=== PATIENT | female | born 1990 | race Caucasian/White ===

== ENCOUNTER 2016-09-10 19:47 | Emergency (ER) | payer BC ==
--- NOTE | 2016-09-10 19:58 | EDM.PDOC ---
ED HPI GENERAL MEDICAL PROBLEM - General Stated Complaint: EAR PAIN Time Seen by Provider: 09/10/16 19:55 Source of Information: Reports: Patient History Limitations: Reports: No Limitations - History of Present Illness INITIAL COMMENTS - FREE TEXT/NARRATIVE: HISTORY AND PHYSICAL: History of present illness: [26-year-old female breast-feeding after recently having a baby. Now complains of cold symptoms and viral syndrome. She has mild sore throat some pressure in her ear is congested fatigued. Denies cough or shortness of breath. No abdominal pain. No nausea or vomiting. Normal bowel bladder habits.] Review of systems: As per history of present illness and below otherwise all systems reviewed and negative. Past medical history: As per history of present illness and as reviewed below otherwise noncontributory. Surgical history: As per history of present illness and as reviewed below otherwise noncontributory. Social history: No reported history of drug or alcohol abuse. Family history: As per history of present illness and as reviewed below otherwise noncontributory. Physical exam: Well-appearing patient smiling supple neck benign exam, left TM erythema bulging and loss of landmarks right TM normal. Supple neck. HEENT: Atraumatic, normocephalic, pupils reactive, negative for conjunctival pallor or scleral icterus, mucous membranes moist, throat clear, neck supple, nontender, trachea midline. Lungs: Clear to auscultation, breath sounds equal bilaterally, chest nontender. Heart: S1S2, regular, negative for clicks, rubs, or JVD. Abdomen: Soft, nondistended, nontender. Negative for masses or hepatosplenomegaly. Negative for costovertebral tenderness. Pelvis: Stable nontender. Genitourinary: Deferred. Rectal: Deferred. Extremities: Atraumatic, negative for cords or calf pain. Neurovascular unremarkable. Neuro: Awake, alert, oriented. Cranial nerves grossly unremarkable. Cerebellum unremarkable. Motor and sensory unremarkable throughout. Exam nonfocal. Diagnostics: [] Therapeutics: [Tylenol] Impression: Otitis media Acute otalgia Clinical fever] Plan: [Signs and symptoms consistent with otitis media in a well-appearing patient with unremarkable vital signs. We'll prescribe Zithromax. Patient aware of possibility of viral etiology along however she is cover for possibility of bacterial infection She can take ibuprofen and Tylenol as needed rest and drink plenty of fluids. No further workup or treatment indicated. Patient agrees with outpatient follow-up and strict return precautions given.] Definitive disposition and diagnosis as appropriate pending reevaluation and review of above. 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: Other OB/BYN History: 29 weeks 01/25/2015 Psychiatric History: Reports: Anxiety Hematologic History: Reports: None Immunologic History: Reports: None Oncologic (Cancer) History: Reports: None - Infectious Disease History Infectious Disease History: Reports: Hepatitis C - Past Surgical History GI Surgical History: Reports: Cholecystectomy Female Surgical History: Reports: D&C Social & Family History - Family History Family Medical History: Noncontributory - Tobacco Use Smoking Status *Q: Never Smoker Years of Tobacco use: 1 Packs/Tins Daily: 1 Second Hand Smoke Exposure: No - Caffeine Use Caffeine Use: Reports: Coffee - Alcohol Use Days Per Week of Alcohol Use: 0 - Recreational Drug Use Recreational Drug Use: No ED ROS GENERAL - Review of Systems Review Of Systems: See Below (History of present illness) ED EXAM, GENERAL - Physical Exam Exam: See Below (History of present illness) Course - Vital Signs Last Recorded V/S: Last Vital Signs Temp 36.9 C 09/10/16 20:04 Pulse 89 09/10/16 20:04 Resp 17 09/10/16 20:04 BP 111/59 L 09/10/16 20:04 Pulse Ox 98 09/10/16 20:04 Departure - Departure Time of Disposition: 19:57 Disposition: Home, Self-Care 01 Condition: Good Clinical Impression: Otitis media, Fever - Discharge Information Referrals: Willy Morales MD [Primary Care Provider] - Additional Instructions: It appears that you have otitis media. Is possible that this could be caused by a virus but sometimes it's a result of a bacterial infection so we are treating with Zithromax. You've been given the first dose which is good for 24 hours. Fill your prescription tomorrow and start the dosing as prescribed. Take ibuprofen every 6 hours and Tylenol every 4 hours as needed for aches pains and fever. Rest and drink plenty of fluids and follow-up with your Dr. tomorrow Follow-up with your Dr.Return immediately for new severe or worsening symptoms.
[2016-09-10] MEDS ORDERED: Azithromycin 250 MG Tab PO ONE (20:17)
[2016-09-10 20:57] VITALS: BP 102/56
== END 2016-09-10 20:38 | disposition home or self-care (01) ==
LOC: MW.ED 19:47
DX: H66.92 Otitis media, unspecified, left ear (principal); Z88.1 Allergy status to other antibiotic agents; Z90.49 Acquired absence of other specified parts of digestive tract
CPT/HCPCS: 99282; A9270

== ENCOUNTER 2016-09-22 05:19 | Emergency (ER) | payer BC ==
--- NOTE | 2016-09-22 05:27 | EDM.PDOC ---
ED HPI GENERAL MEDICAL PROBLEM - General Chief Complaint: Upper Extremity Injury/Pain Stated Complaint: RING STUCK ON LEFT HAND Time Seen by Provider: 09/22/16 05:26 Source of Information: Reports: Patient - History of Present Illness INITIAL COMMENTS - FREE TEXT/NARRATIVE: HISTORY AND PHYSICAL: History of present illness: Ring stuck on left fourth digit, normal capillary refill mild swelling, finger remains tender after the ring is removed, mildly redness may be from the tightfitting ring her there may be associated cellulitis from unable to discern which is certainly comes into play that the ring was tight however she was in June and she has not had a problem getting the ring off or on over the last 4 months tonight she had digit swelling to the point that the ring was painful to wear. Patient denies injury or trauma No fever nausea vomiting chills sweats over patient is panicky as she cannot give during for her finger Review of systems: As per history of present illness and below otherwise all systems reviewed and negative. Past medical history: As per history of present illness and as reviewed below otherwise noncontributory. Surgical history: As per history of present illness and as reviewed below otherwise noncontributory. Social history: No reported history of drug or alcohol abuse. Family history: As per history of present illness and as reviewed below otherwise noncontributory. Physical exam: HEENT: Atraumatic, normocephalic, pupils reactive, negative for conjunctival pallor or scleral icterus, mucous membranes moist, throat clear, neck supple, nontender, trachea midline. Lungs: Clear to auscultation, breath sounds equal bilaterally, chest nontender. Heart: S1S2, regular, negative for clicks, rubs, or JVD. Abdomen: Soft, nondistended, nontender. Negative for masses or hepatosplenomegaly. Negative for costovertebral tenderness. Pelvis: Stable nontender. Genitourinary: Deferred. Rectal: Deferred. Extremities: Atraumatic, negative for cords or calf pain. Neurovascular unremarkable. Neuro: Awake, alert, oriented. Cranial nerves II through XII unremarkable. Cerebellum unremarkable. Motor and sensory unremarkable throughout. Exam nonfocal. Diagnostics: [] Therapeutics: []Ring cutter, ring removed Bactrim double strength by mouth twice a day #20 no refill Follow-up with primary care in one to 2 weeks return if symptoms persist or worsen Impression: []Ring stuck on finger, removed without complication Definitive disposition and diagnosis as appropriate pending reevaluation and review of above. 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: Other OB/BYN History: 29 weeks 01/25/2015 Psychiatric History: Reports: Anxiety Hematologic History: Reports: None Immunologic History: Reports: None Oncologic (Cancer) History: Reports: None - Infectious Disease History Infectious Disease History: Reports: Hepatitis C - Past Surgical History GI Surgical History: Reports: Cholecystectomy Female Surgical History: Reports: D&C Social & Family History - Family History Family Medical History: Noncontributory - Tobacco Use Smoking Status *Q: Never Smoker Years of Tobacco use: 1 Packs/Tins Daily: 1 Second Hand Smoke Exposure: No - Caffeine Use Caffeine Use: Reports: Coffee Caffeine Use Comment: 1cup/day - Alcohol Use Days Per Week of Alcohol Use: 0 - Recreational Drug Use Recreational Drug Use: No Review of Systems - Review of Systems Review Of Systems: ROS reveals no pertinent complaints other than HPI. ED EXAM, GENERAL - Physical Exam Exam: See Below Course - Vital Signs Last Recorded V/S: Last Vital Signs Temp 36.1 C 09/22/16 05:25 Pulse 82 09/22/16 05:25 Resp 18 09/22/16 05:25 BP 93/55 L 09/22/16 05:25 Pulse Ox 98 09/22/16 05:25 Departure - Departure Time of Disposition: 05:41 Disposition: Home, Self-Care 01 Condition: Good Clinical Impression: Cellulitis and abscess of finger, unspecified - Discharge Information Forms: ED Department Discharge Additional Instructions: Return if symptoms persist or worsen or fever nausea vomiting chills sweats despite antibiotic Follow-up with primary care in 2 weeks sooner as needed Medication as prescribed [facility] [address] [place] [id number] The following information is given to patients seen in the emergency department who are being discharged to home. This information is to outline your options for follow-up care. We provide all patients seen in our emergency department with a follow-up referral. The need for follow-up, as well as the timing and circumstances, are variable depending upon the specifics of your emergency department visit. If you don't have a primary care physician on staff, we will provide you with a referral. We always advise you to contact your personal physician following an emergency department visit to inform them of the circumstance of the visit and for follow-up with them and/or the need for any referrals to a consulting specialist. The emergency department will also refer you to a specialist when appropriate. This referral assures that you have the opportunity for follow-up care with a specialist. All of these measure are taken in an effort to provide you with optimal care, which includes your follow-up. Under all circumstances we always encourage you to contact your private physician who remains a resource for coordinating your care. When calling for follow-up care, please make the office aware that this follow-up is from your recent emergency room visit. If for any reason you are refused follow-up, please contact the [facility] emergency department at and asked to speak to the emergency department charge nurse.
[2016-09-22 05:54] VITALS: BP 97/61
== END 2016-09-22 05:54 | disposition home or self-care (01) ==
LOC: MW.ED 05:19
DX: L03.012 Cellulitis of left finger (principal); F41.9 Anxiety disorder, unspecified; Z90.49 Acquired absence of other specified parts of digestive tract; Z88.1 Allergy status to other antibiotic agents; X58.XXXA Exposure to other specified factors, initial encounter
CPT/HCPCS: 99282; 99283

== ENCOUNTER 2017-02-03 10:16 | Emergency (ER) | payer BC ==
[2017-02-03] MEDS ORDERED: Sodium Chloride 0.9% 2.5 ML Syringe FLUSH PRN (10:26)
[2017-02-03] MEDS ORDERED: LORazepam 2 MG/ML MDV IVPUSH ONE (10:26)
[2017-02-03] MEDS ORDERED: Sodium Chloride 0.9% 1,000 ML IV ONE (10:45)
--- NOTE | 2017-02-03 10:46 | EDM.PDOC ---
ED HPI GENERAL MEDICAL PROBLEM - General Chief Complaint: General Stated Complaint: pain in legs Time Seen by Provider: 02/03/17 10:30 Source of Information: Reports: Patient History Limitations: Reports: No Limitations - History of Present Illness INITIAL COMMENTS - FREE TEXT/NARRATIVE: History of present illness: [26-year-old female presenting with complaints of anxiety, nausea vomiting, and peripheral neuropathy. Patient indicates that she feels numbness and tingling to her legs and it is painful. Patient occasionally bothers him to evaluate this but that she missed her appointment and she was scheduled for the second but she cannot tolerate the pain at this time so she is coming in seeking care.] Review of systems: As per history of present illness and below otherwise all systems reviewed and negative. Past medical history: As per history of present illness and as reviewed below otherwise noncontributory. Surgical history: As per history of present illness and as reviewed below otherwise noncontributory. Social history: No reported history of drug or alcohol abuse. Family history: As per history of present illness and as reviewed below otherwise noncontributory. Physical exam: HEENT: Atraumatic, normocephalic, pupils reactive, negative for conjunctival pallor or scleral icterus, mucous membranes moist, throat clear, neck supple, nontender, trachea midline. Lungs: Clear to auscultation, breath sounds equal bilaterally, chest nontender. Heart: S1S2, regular, negative for clicks, rubs, or JVD. Abdomen: Soft, nondistended, nontender. Negative for masses or hepatosplenomegaly. Negative for costovertebral tenderness. Pelvis: Stable nontender. Genitourinary: Deferred. Rectal: Deferred. Extremities: Atraumatic, negative for cords or calf pain. Neurovascular unremarkable. Neuro: Awake, alert, oriented. Cranial nerves II through XII unremarkable. Cerebellum unremarkable. Motor and sensory unremarkable throughout. Exam nonfocal. Patient with an extensive psychiatric history as well as drug abuse indicates that she received treatment for hepatitis C is clean dry and sober and that she had taken herself off most of her meds. Diagnostics: [CBC, CMP, influenza AB] Therapeutics: [IV fluid, Zofran 4 mg, Ativan 2 mg] Impression: [#1 complaints of neuropathic pain] Plan: [Gabapentin bridge until follow-up with primary care] Definitive disposition and diagnosis as appropriate pending reevaluation and review of above. bilateral legs Pain Score (Numeric/FACES): 10 - Related Data Allergies Allergy/AdvReac Type Severity Reaction Status Date / Time clindamycin Allergy Rash Verified 02/03/17 10:23 Home Meds: Home Meds Azithromycin [Zithromax] 250 mg PO DAILY #6 tablet 09/10/16 [Rx] Gabapentin [Neurontin] 600 mg PO TID #60 tablet 02/03/17 [Rx] Past Medical History - Past Health History Medical/Surgical History: Denies Medical/Surgical History HEENT History: Reports: None Cardiovascular History: Reports: None Respiratory History: Reports: None Gastrointestinal History: Reports: None Genitourinary History: Reports: None 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: Other OB/BYN History: 29 weeks 01/25/2015 Musculoskeletal History: Reports: None Neurological History: Reports: None Psychiatric History: Reports: Anxiety, Depression Endocrine/Metabolic History: Reports: None Hematologic History: Reports: None Immunologic History: Reports: None Oncologic (Cancer) History: Reports: None Dermatologic History: Reports: None - Infectious Disease History Infectious Disease History: Reports: Hepatitis C - Past Surgical History Head Surgeries/Procedures: Reports: None GI Surgical History: Reports: Cholecystectomy Female Surgical History: Reports: D&C Musculoskeletal Surgical History: Reports: None Social & Family History - Family History Family Medical History: Noncontributory - Tobacco Use Smoking Status *Q: Never Smoker Years of Tobacco use: 1 Packs/Tins Daily: 1 Second Hand Smoke Exposure: No - Caffeine Use Caffeine Use: Reports: Coffee Caffeine Use Comment: 1cup/day - Alcohol Use Days Per Week of Alcohol Use: 0 - Recreational Drug Use Recreational Drug Use: No ED ROS GENERAL - Review of Systems Review Of Systems: See Below (See history of present illness) ED EXAM, GENERAL - Physical Exam Exam: See Below (The history of present illness) Course - Vital Signs Last Recorded V/S: Last Vital Signs Temp 37.7 C 02/03/17 10:23 Pulse 86 02/03/17 12:04 Resp 16 02/03/17 12:04 BP 88/58 L 02/03/17 12:04 Pulse Ox 98 02/03/17 12:04 - Orders/Labs/Meds Orders: Active Orders 24 hr Category Date Time Status Sodium Chloride 0.9% [Saline Flush] Med 02/03/17 10:26 Active 2.5 ml FLUSH ASDIRECTED PRN Saline Lock Insert [OM.PC] Stat Oth 02/03/17 10:26 Ordered Medication Orders Sodium Chloride (Saline Flush) 2.5 ml FLUSH ASDIRECTED PRN PRN Reason: Keep Vein Open Last Admin: 02/03/17 10:51 Dose: 2.5 ml Labs: Laboratory Tests 02/03/17 02/03/17 Range/Units 10:35 10:35 WBC 9.97 (4.0-11.0) K/uL RBC 5.12 (4.30-5.90) M/uL Hgb 15.6 (12.0-16.0) g/dL Hct 44.1 (36.0-46.0) % MCV 86.1 (80.0-98.0) fL MCH 30.5 (27.0-32.0) pg MCHC 35.4 (31.0-37.0) g/dL RDW Std Deviation 38.4 (28.0-62.0) fl RDW Coeff of Alana 12 (11.0-15.0) % Plt Count 238 (150-400) K/uL MPV 11.20 (7.40-12.00) fL Neut % (Auto) 83.5 H (48.0-80.0) % Lymph % (Auto) 9.7 L (16.0-40.0) % Loup % (Auto) 6.7 (0.0-15.0) % Eos % (Auto) 0.0 (0.0-7.0) % Baso % (Auto) 0.1 (0.0-1.5) % Neut # (Auto) 8.3 H (1.4-5.7) K/uL Lymph # (Auto) 1.0 (0.6-2.4) K/uL Loup # (Auto) 0.7 (0.0-0.8) K/uL Eos # (Auto) 0.0 (0.0-0.7) K/uL Baso # (Auto) 0.0 (0.0-0.1) K/uL Nucleated RBC % 0.0 /100WBC Nucleated RBCs # 0 K/uL Sodium 141 (136-146) mmol/L Potassium 3.4 L (3.5-5.1) mmol/L Chloride 106 (98-110) mmol/L Carbon Dioxide 21 (21-31) mmol/L BUN 14 (6.0-23.0) mg/dL Creatinine 0.8 (0.6-1.5) mg/dL Est Cr Clr Drug Dosing 87.38 mL/min Estimated GFR (MDRD) > 60.0 ml/min Glucose 133 H (60-110) mg/dL Calcium 9.6 (8.8-10.8) mg/dL Total Bilirubin 0.7 (0.1-1.5) mg/dL AST 15 (5-40) IU/L ALT 17 (8-54) IU/L Alkaline Phosphatase 63 (40-150) Total Protein 7.5 (6.0-8.0) g/dL Albumin 4.6 (3.5-5.0) g/dL Globulin 2.9 (2.0-3.5) g/dL Albumin/Globulin Ratio 1.6 (1.3-2.8) HCG, Quant < 1.2 mIU/mL Meds: Medications Generic Name Dose Route Start Last Admin Trade Name Freq PRN Reason Stop Dose Admin Sodium Chloride 2.5 ml 02/03/17 10:26 02/03/17 10:51 Saline Flush FLUSH 2.5 ml ASDIRECTED PRN Administration Keep Vein Open Discontinued Medications Generic Name Dose Route Start Last Admin Trade Name Freq PRN Reason Stop Dose Admin Gabapentin 300 mg 02/03/17 11:25 02/03/17 11:37 Neurontin PO 02/03/17 11:26 300 mg ONETIME ONE Administration Sodium Chloride 1,000 mls @ 999 mls/hr 02/03/17 10:45 02/03/17 10:46 Normal Saline IV 02/03/17 11:45 999 mls/hr STAT ONE Administration Lorazepam 2 mg 02/03/17 10:26 02/03/17 10:44 Ativan IVPUSH 02/03/17 10:27 2 mg ONETIME ONE Administration Ondansetron HCl 4 mg 02/03/17 10:47 02/03/17 10:58 Zofran IVPUSH 02/03/17 10:48 4 mg ONETIME ONE Administration Departure - Departure Time of Disposition: 12:10 Disposition: Home, Self-Care 01 Condition: Good Clinical Impression: Neuropathic pain of both legs - Discharge Information Prescriptions: Gabapentin [Neurontin] 600 mg PO TID #60 tablet Forms: ED Department Discharge Additional Instructions: The following information is given to patients seen in the emergency department who are being discharged to home. This information is to outline your options for follow-up care. We provide all patients seen in our emergency department with a follow-up referral. The need for follow-up, as well as the timing and circumstances, are variable depending upon the specifics of your emergency department visit. If you don't have a primary care physician on staff, we will provide you with a referral. We always advise you to contact your personal physician following an emergency department visit to inform them of the circumstance of the visit and for follow-up with them and/or the need for any referrals to a consulting specialist. The emergency department will also refer you to a specialist when appropriate. This referral assures that you have the opportunity for follow-up care with a specialist. All of these measure are taken in an effort to provide you with optimal care, which includes your follow-up. Under all circumstances we always encourage you to contact your private physician who remains a resource for coordinating your care. When calling for follow-up care, please make the office aware that this follow-up is from your recent emergency room visit. If for any reason you are refused follow-up, please contact the [facility] Emergency Department at and asked to speak to the emergency department charge nurse. Take medication as directed Follow up with your PCP as james scheduled Return to ED as needed as discussed - My Orders Last 24 Hours: My Active Orders 02/03/17 10:26 Sodium Chloride 0.9% [Saline Flush] 2.5 ml FLUSH ASDIRECTED PRN Saline Lock Insert [OM.PC] Stat - Assessment/Plan Last 24 Hours: My Active Orders 02/03/17 10:26 Sodium Chloride 0.9% [Saline Flush] 2.5 ml FLUSH ASDIRECTED PRN Saline Lock Insert [OM.PC] Stat
[2017-02-03] MEDS ORDERED: Ondansetron 4 MG/2 ML SDV IVPUSH ONE (10:47)
[2017-02-03 11:25] LABS: CHLORIDE,CL 106 mmol/L (98-110); SODIUM,NA 141 mmol/L (136-146)
[2017-02-03] MEDS ORDERED: Gabapentin 300 MG Cap PO ONE (11:25)
[2017-02-03 12:06] VITALS: BP 88/58
== END 2017-02-03 12:20 | disposition home or self-care (01) ==
LOC: MW.ED 10:16
DX: M79.2 Neuralgia and neuritis, unspecified (principal); Z88.1 Allergy status to other antibiotic agents; Z79.899 Other long term (current) drug therapy
CPT/HCPCS: 36415; 80053; 84702; 85025; 87804; 96372; 99283; A9270; J2060; J2405; J7040

== ENCOUNTER 2017-02-23 14:14 | Emergency (ER) | payer BC ==
--- NOTE | 2017-02-23 14:33 | EDM.PDOC ---
ED HPI GENERAL MEDICAL PROBLEM - General Stated Complaint: VOMITTING Time Seen by Provider: 02/23/17 14:31 Source of Information: Reports: Patient History Limitations: Reports: No Limitations - History of Present Illness INITIAL COMMENTS - FREE TEXT/NARRATIVE: HISTORY AND PHYSICAL: []26-year-old female presenting with complaints of nausea vomiting muscle cramping History of Present Illness: []Patient has history of peripheral neuropathy Joan is on seizure medication, thinks that she had a seizure earlier today Review of Systems: As per history of present illness and below otherwise all systems reviewed and negative. Past medical history: As per history of present illness and as reviewed below otherwise noncontributory. Surgical history: As per history of present illness and as reviewed below otherwise noncontributory. Social history: No reported history of drug or alcohol abuse. Family history: As per history of present illness and as reviewed below otherwise noncontributory. Physical exam: Alert and oriented female answering questions appropriately in full sentences without any shortness of breath. HEENT: Atraumatic, normocehpalic, pupils reactive, negative for conjunctival pallor or scleral icterus, mucous membranes moist, throat clear, neck supple, nontender, trachea midline. Oral mucosa dry Lungs: Clear to auscultation, breath sounds equal bilaterally, chest non tender. Heart: S1S2, regular, negative for clicks, rubs, or JVD. Abdomen: Soft, nondistended, nontender. Negative for masses or hepatossplenmegaly. Negative for costovertebral tenderness. Pelvis: Stable nontender. Genitourinary: Deferred. Rectal: Deferred Extremities: Atraumatic, negative for cords or calf pain. Neurovascular unremarkable. Neuro: Awake, alert, oriented. Cranial nerves II through XII unremarkable. Cerebellum unremarkable. Motor and sensory unremarkable throughout. Exam nonfocal. Patient noted with increased vomiting/as nurse was walking by she had her fingers down her throat making herself vomit. Discussed lab results with patient and she did verbalize understanding of these instructions Diagnostics: [CBC CMP influenza] Therapeutics: 1 L normal saline[] Impression: [Self-induced vomiting Abdominal pain/epigastric pain] Plan: []Discharged to home Recommended Pepcid [id number] medicine twice daily Follow-up with your primary care provider in 2 days Definitive disposition and diagnosis as appropriate pending reevaluation and review of above. Onset: Today, Sudden Duration: Hour(s):, Getting Worse Location: Reports: Abdomen Abdominal Pain Score (Numeric/FACES): 10 - Related Data Allergies Allergy/AdvReac Type Severity Reaction Status Date / Time clindamycin Allergy Rash Verified 02/23/17 15:10 Home Meds: Home Meds Gabapentin [Neurontin] 600 mg PO TID #60 tablet 02/03/17 [Rx] Citalopram Hydrobromide [Celexa] 40 mg PO DAILY 02/23/17 [History] LORazepam 1 mg PO TID PRN 02/23/17 [History] clonazePAM [Klonopin] 1 mg PO TID PRN 02/23/17 [History] Past Medical History - Past Health History Medical/Surgical History: Denies Medical/Surgical History HEENT History: Reports: None Cardiovascular History: Reports: None Respiratory History: Reports: None Gastrointestinal History: Reports: None Genitourinary History: Reports: None [employer]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: Other OB/BYN History: 29 weeks 01/25/2015 Musculoskeletal History: Reports: None Neurological History: Reports: None Psychiatric History: Reports: Anxiety Endocrine/Metabolic History: Reports: None Hematologic History: Reports: None Immunologic History: Reports: None Oncologic (Cancer) History: Reports: None Dermatologic History: Reports: None - Infectious Disease History Infectious Disease History: Reports: Hepatitis C - Past Surgical History Head Surgeries/Procedures: Reports: None GI Surgical History: Reports: Cholecystectomy Female Surgical History: Reports: D&C Musculoskeletal Surgical History: Reports: None Social & Family History - Family History Family Medical History: Noncontributory - Tobacco Use Smoking Status *Q: Never Smoker Years of Tobacco use: 1 Packs/Tins Daily: 1 Second Hand Smoke Exposure: No - Caffeine Use Caffeine Use: Reports: Coffee Caffeine Use Comment: 1cup/day - Alcohol Use Days Per Week of Alcohol Use: 0 - Recreational Drug Use Recreational Drug Use: No ED ROS GENERAL - Review of Systems Review Of Systems: ROS reveals no pertinent complaints other than HPI. ED EXAM, GENERAL - Physical Exam Exam: See Below (see dictation) Course - Vital Signs Last Recorded V/S: Last Vital Signs Temp 36.6 C 02/23/17 15:11 Pulse 103 H 02/23/17 15:11 Resp 16 02/23/17 15:11 BP 139/109 H 02/23/17 15:11 Pulse Ox 97 02/23/17 15:11 - Orders/Labs/Meds Orders: Active Orders 24 hr Category Date Time Status INFLUENZA A+B AG SCREEN [RM] Stat Lab 02/23/17 14:56 Uncollected Sodium Chloride 0.9% [Saline Flush] Med 02/23/17 14:56 Active 10 ml FLUSH ASDIRECTED PRN Sodium Chloride 0.9% [Saline Flush] Med 02/23/17 14:56 Active 2.5 ml FLUSH ASDIRECTED PRN Saline Lock Insert [OM.PC] Stat Oth 02/23/17 14:56 Ordered Medication Orders Sodium Chloride (Saline Flush) 10 ml FLUSH ASDIRECTED PRN PRN Reason: Keep Vein Open Last Admin: 02/23/17 15:18 Dose: 10 ml Sodium Chloride (Saline Flush) 2.5 ml FLUSH ASDIRECTED PRN PRN Reason: Keep Vein Open Last Admin: 02/23/17 15:18 Dose: 2.5 ml Labs: Laboratory Tests 02/23/17 02/23/17 Range/Units 15:13 15:13 WBC 6.99 (4.0-11.0) K/uL RBC 4.83 (4.30-5.90) M/uL Hgb 14.6 (12.0-16.0) g/dL Hct 42.0 (36.0-46.0) % MCV 87.0 (80.0-98.0) fL MCH 30.2 (27.0-32.0) pg MCHC 34.8 (31.0-37.0) g/dL RDW Std Deviation 39.0 (28.0-62.0) fl RDW Coeff of [place]ana 12 (11.0-15.0) % Plt Count 187 (150-400) K/uL MPV 11.10 (7.40-12.00) fL Neut % (Auto) 91.5 H (48.0-80.0) % Lymph % (Auto) 5.4 L (16.0-40.0) % [place] % (Auto) 3.0 (0.0-15.0) % Eos % (Auto) 0.0 (0.0-7.0) % Baso % (Auto) 0.1 (0.0-1.5) % Neut # (Auto) 6.4 H (1.4-5.7) K/uL Lymph # (Auto) 0.4 L (0.6-2.4) K/uL [place] # (Auto) 0.2 (0.0-0.8) K/uL Eos # (Auto) 0.0 (0.0-0.7) K/uL Baso # (Auto) 0.0 (0.0-0.1) K/uL Nucleated RBC % 0.0 /100WBC Nucleated RBCs # 0 K/uL Sodium 141 (136-146) mmol/L Potassium 3.8 (3.5-5.1) mmol/L Chloride 106 (98-110) mmol/L Carbon Dioxide 22 (21-31) mmol/L BUN 13 (6.0-23.0) mg/dL Creatinine 0.7 (0.6-1.5) mg/dL Est Cr Clr Drug Dosing 95.48 mL/min Estimated GFR (MDRD) > 60.0 ml/min Glucose 122 H (60-110) mg/dL Calcium 9.8 (8.8-10.8) mg/dL Total Bilirubin 0.8 (0.1-1.5) mg/dL AST 16 (5-40) IU/L ALT 15 (8-54) IU/L Alkaline Phosphatase 69 (40-150) Total Protein 7.5 (6.0-8.0) g/dL Albumin 4.7 (3.5-5.0) g/dL Globulin 2.8 (2.0-3.5) g/dL Albumin/Globulin Ratio 1.7 (1.3-2.8) Meds: Medications Generic Name Dose Route Start Last Admin Trade Name Freq PRN Reason Stop Dose Admin Sodium Chloride 10 ml 02/23/17 14:56 02/23/17 15:18 Saline Flush FLUSH 10 ml ASDIRECTED PRN Administration Keep Vein Open Sodium Chloride 2.5 ml 02/23/17 14:56 02/23/17 15:18 Saline Flush FLUSH 2.5 ml ASDIRECTED PRN Administration Keep Vein Open Discontinued Medications Generic Name Dose Route Start Last Admin Trade Name Freq PRN Reason Stop Dose Admin Sodium Chloride 1,000 mls @ 999 mls/hr 02/23/17 14:56 02/23/17 15:18 Normal Saline IV 02/23/17 15:56 999 mls/hr STAT ONE Administration Ondansetron HCl 4 mg 02/23/17 14:55 02/23/17 15:18 Zofran Odt PO 02/23/17 14:56 4 mg ONETIME ONE Administration Prochlorperazine Edisylate 10 mg 02/23/17 15:30 Compazine IM 02/23/17 15:31 ONETIME ONE Departure - Departure Time of Disposition: 16:33 Disposition: Home, Self-Care 01 Condition: Good Clinical Impression: Vomiting - Discharge Information Instructions: Abdominal Pain, Adult, [id number] Referrals: PCP,None [Primary Care Provider] - Additional Instructions: The following information is given to patients seen in the emergency department who are being discharged to home. This information is to outline your options for follow-up care. We provide all patients seen in our emergency department with a follow-up referral. The need for follow-up, as well as the timing and circumstances, are variable depending upon the specifics of your emergency department visit. If you don't have a primary care physician on staff, we will provide you with a referral. We always advise you to contact your personal physician following an emergency department visit to inform them of the circumstance of the visit and for follow-up with them and/or the need for any referrals to a consulting specialist. The emergency department will also refer you to a specialist when appropriate. This referral assures that you have the opportunity for followup care with a specialist. All of these measure are taken in an effort to provide you with optimal care, which includes your followup. Under all circumstances we always encourage you to contact your private physician who remains a resource for coordinating your care. When calling for followup care, please make the office aware that this follow-up is from your recent emergency room visit. If for any reason you are refused follow-up, please contact the [facility] emergency department at and asked to speak to the emergency department charge nurse. Follow-up with your primary care provider in 2 days Pepcid [id number] twice daily Gatorade for dehydration - My Orders Last 24 Hours: My Active Orders 02/23/17 14:56 INFLUENZA A+B AG SCREEN [RM] Stat Sodium Chloride 0.9% [Saline Flush] 10 ml FLUSH ASDIRECTED PRN Sodium Chloride 0.9% [Saline Flush] 2.5 ml FLUSH ASDIRECTED PRN Saline Lock Insert [OM.PC] Stat - Assessment/Plan Last 24 Hours: My Active Orders 02/23/17 14:56 INFLUENZA A+B AG SCREEN [RM] Stat Sodium Chloride 0.9% [Saline Flush] 10 ml FLUSH ASDIRECTED PRN Sodium Chloride 0.9% [Saline Flush] 2.5 ml FLUSH ASDIRECTED PRN Saline Lock Insert [OM.PC] Stat
[2017-02-23] MEDS ORDERED: Ondansetron 4 MG Tab.DIS PO ONE (14:55)
[2017-02-23] MEDS ORDERED: Sodium Chloride 0.9% 1,000 ML IV ONE (14:56)
[2017-02-23] MEDS ORDERED: Sodium Chloride 0.9% 2.5 ML Syringe FLUSH PRN (14:56)
[2017-02-23] MEDS ORDERED: Sodium Chloride 0.9% 10 ML Syringe FLUSH PRN (14:56)
[2017-02-23 15:20] VITALS: BP 139/109
[2017-02-23] MEDS ORDERED: Prochlorperazine 10 MG/2 ML SDV IM ONE (15:30)
[2017-02-23 16:09] LABS: CHLORIDE,CL 106 mmol/L (98-110); SODIUM,NA 141 mmol/L (136-146)
== END 2017-02-23 16:35 | disposition home or self-care (01) ==
LOC: MW.ED 14:14
DX: R11.2 Nausea with vomiting, unspecified (principal); R10.13 Epigastric pain; F41.9 Anxiety disorder, unspecified; Z88.1 Allergy status to other antibiotic agents; Z79.899 Other long term (current) drug therapy
CPT/HCPCS: 36415; 80053; 85025; 87804; A9270; J7040; 96360; 99283; 99284-25

== ENCOUNTER 2017-04-22 16:03 | Emergency (ER) | payer BC ==
[2017-04-22 16:07] VITALS: BP 138/94
[2017-04-22] MEDS ORDERED: LORazepam 1 MG Tab PO ONE (16:20)
--- NOTE | 2017-04-22 16:47 | EDM.PDOC ---
ED HPI GENERAL MEDICAL PROBLEM - General Chief Complaint: Behavioral/Psych Stated Complaint: SUICIDAL THOUGHTS Time Seen by Provider: 04/22/17 16:39 Source of Information: Reports: Patient, Family History Limitations: Reports: No Limitations - History of Present Illness INITIAL COMMENTS - FREE TEXT/NARRATIVE: HISTORY AND PHYSICAL: []26-year-old female presents, walking from her home to the ED, with suicidal ideations. History of Present Illness: [Patient has been "clean" for 5 years and last night tried to kill herself with shooting up. She does not know what she took notes she had shot up again this morning. She was unsuccessful she came to the ER]. First instance of being high was at 5 years old when her brother got her high on marijuana. She is a heavy drug user by the time she was 11. And by 14 she was using injectable drugs. She has been numerous times in an out of centers for drug use. And has been clean for the last 5 years. Patient has been quite depressed recently with her separation from her . Was aggressive towards stepmom several weeks ago and threatening harm to her. Review of Systems: As per history of present illness and below otherwise all systems reviewed and negative. Past medical history: As per history of present illness and as reviewed below otherwise noncontributory. Surgical history: As per history of present illness and as reviewed below otherwise noncontributory. Social history: No reported history of drug or alcohol abuse. Family history: As per history of present illness and as reviewed below otherwise noncontributory. Physical exam: Very anxious young woman who is quite tearful. Admits to hearing voices, " people are looking at her" HEENT: Atraumatic, normocehpalic, pupils reactive, negative for conjunctival pallor or scleral icterus, mucous membranes moist, throat clear, neck supple, nontender, trachea midline. Lungs: Clear to auscultation, breath sounds equal bilaterally, chest non tender. Heart: S1S2, regular, negative for clicks, rubs, or JVD. Abdomen: Soft, nondistended, nontender. Negative for masses or hepatossplenmegaly. Negative for costovertebral tenderness. Pelvis: Stable nontender. Genitourinary: Deferred. Rectal: Deferred Extremities: Atraumatic, negative for cords or calf pain. Neurovascular unremarkable. Neuro: Awake, alert, oriented. Cranial nerves II through XII unremarkable. Cerebellum unremarkable. Motor and sensory unremarkable throughout. Exam nonfocal. Step-Mother is at bedside is very concerned that she has been suicidal for the last 3 weeks. Stepmother is concerned that she has been hearing voices and diagnosed with schizophrenia in the past .currently is not on medications .Patient has from her has partial custody of children. Patient has come down more since 1 mg Ativan was given by mouth. She is cooperative with examination. SHe is agreeable to talk to the psychiatrist and is accurate information. Patient states she really isn't hearing "voices" but feels very paranoid everyone is looking Diagnostics: [Mental health set] Therapeutics: [Ativan] Impression: [Suicidal ideations and attempt] Plan: []Transfer patient to closest available center with psychiatric which is [facility] All EMTALA forms and documents have been completed Definitive disposition and diagnosis as appropriate pending reevaluation and review of above. Onset: Gradual Duration: Week(s): (3) Location: Reports: Generalized Severity: Severe Improves with: Reports: None Worsens with: Reports: None Associated Symptoms: Reports: Confusion - Related Data Allergies Allergy/AdvReac Type Severity Reaction Status Date / Time clindamycin Allergy Rash Verified 04/22/17 16:07 Home Meds: Home Meds Gabapentin [Neurontin] 600 mg PO TID #60 tablet 02/03/17 [Rx] clonazePAM [Klonopin] 1 mg PO TID PRN 02/23/17 [History] ARIPiprazole [Abilify] 04/22/17 [History] Past Medical History - Past Health History Medical/Surgical History: Denies Medical/Surgical History HEENT History: Reports: None Cardiovascular History: Reports: None Respiratory History: Reports: None Gastrointestinal History: Reports: None Genitourinary History: Reports: None 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 OB/BYN History: 29 weeks 01/25/2015 Musculoskeletal History: Reports: None Neurological History: Reports: None Psychiatric History: Reports: Anxiety, Depression Endocrine/Metabolic History: Reports: None Hematologic History: Reports: None Immunologic History: Reports: None Oncologic (Cancer) History: Reports: None Dermatologic History: Reports: None - Infectious Disease History Infectious Disease History: Reports: Hepatitis C - Past Surgical History Head Surgeries/Procedures: Reports: None GI Surgical History: Reports: Cholecystectomy Female Surgical History: Reports: D&C Musculoskeletal Surgical History: Reports: None Social & Family History - Family History Family Medical History: Noncontributory - Tobacco Use Smoking Status *Q: Never Smoker Years of Tobacco use: 1 Packs/Tins Daily: 1 Second Hand Smoke Exposure: No - Caffeine Use Caffeine Use: Reports: Coffee Caffeine Use Comment: 1cup/day - Alcohol Use Days Per Week of Alcohol Use: 4 Number of Drinks Per Day: 5 Total Drinks Per Week: 20 - Recreational Drug Use Recreational Drug Use: Yes Drug Use in Last 12 Months: Yes Recreational Drug Type: Reports: Marijuana/Hashish Recreational Drug Use Frequency: Daily ED ROS GENERAL - Review of Systems Review Of Systems: ROS reveals no pertinent complaints other than HPI. - Physical Exam Exam: See Below (see dictation) EKG INTERPRETATION EKG Date: 04/22/17 Rate (Beats/Min): 105 Comparison: No Change EKG Interpretation Comments: sinus tachycardia Course - Vital Signs Last Recorded V/S: Last Vital Signs Temp 37.6 C 04/22/17 16:04 Pulse 139 H 04/22/17 16:04 Resp 18 04/22/17 16:04 BP 138/94 H 04/22/17 16:04 Pulse Ox 97 04/22/17 16:04 - Orders/Labs/Meds Orders: Active Orders 24 hr Category Date Time Status EKG Documentation Completion [RC] STAT Care 04/22/17 16:09 Active DRUG SCREEN, URINE [URCHEM] Stat Lab 04/22/17 17:13 Received UA W/MICROSCOPIC [URIN] Stat Lab 04/22/17 17:13 Results Labs: Laboratory Tests 04/22/17 04/22/17 04/22/17 Range/Units 16:25 16:25 17:13 WBC 8.01 (4.0-11.0) K/uL RBC 4.56 (4.30-5.90) M/uL Hgb 13.9 (12.0-16.0) g/dL Hct 39.2 (36.0-46.0) % MCV 86.0 (80.0-98.0) fL MCH 30.5 (27.0-32.0) pg MCHC 35.5 (31.0-37.0) g/dL RDW Std Deviation 41.9 (28.0-62.0) fl RDW Coeff of Alana 13 (11.0-15.0) % Plt Count 225 (150-400) K/uL MPV 9.50 (7.40-12.00) fL Neut % (Auto) 48.3 (48.0-80.0) % Lymph % (Auto) 39.1 (16.0-40.0) % [place] % (Auto) 11.1 (0.0-15.0) % Eos % (Auto) 0.4 (0.0-7.0) % Baso % (Auto) 1.1 (0.0-1.5) % Neut # (Auto) 3.9 (1.4-5.7) K/uL Lymph # (Auto) 3.1 H (0.6-2.4) K/uL [place] # (Auto) 0.9 H (0.0-0.8) K/uL Eos # (Auto) 0.0 (0.0-0.7) K/uL Baso # (Auto) 0.1 (0.0-0.1) K/uL Nucleated RBC % 0.0 /100WBC Nucleated RBCs # 0 K/uL Sodium 139 (136-145) mmol/L Potassium 3.5 (3.5-5.1) mmol/L Chloride 103 (98-107) mmol/L Carbon Dioxide 26.4 (21.0-32.0) mmol/L BUN 7 (7.0-18.0) mg/dL Creatinine 0.6 (0.6-1.0) mg/dL Est Cr Clr Drug Dosing 111.39 mL/min Estimated GFR (MDRD) > 60.0 ml/min Glucose 105 (74-106) mg/dL Calcium 8.3 L (8.5-10.1) mg/dL Magnesium 1.4 L (1.5-2.0) mg/dL Total Bilirubin 0.6 (0.2-1.0) mg/dL AST 35 (15-37) IU/L ALT 38 (14-63) IU/L Alkaline Phosphatase 101 (46-116) U/L Total Protein 7.1 (6.4-8.2) g/dL Albumin 3.8 (3.4-5.0) g/dL Globulin 3.3 (2.0-3.5) g/dL Albumin/Globulin Ratio 1.2 L (1.3-2.8) TSH 3rd Generation 2.23 (0.36-3.74) uIU/mL Urine Color YELLOW Urine Appearance CLEAR Urine pH 6.0 (5.0-8.0) Ur Specific [place] 1.025 (1.001-1.035) Urine Protein 30 (NEGATIVE) mg/dL Urine Glucose (UA) NEGATIVE (NEGATIVE) mg/dL Urine Ketones 40 H (NEGATIVE) mg/dL Urine Occult Blood TRACE-INTACT (NEGATIVE) Urine Nitrite NEGATIVE (NEGATIVE) Urine Bilirubin SMALL H (NEGATIVE) Urine Urobilinogen 0.2 (<2.0) EU/dL Ur Leukocyte Esterase NEGATIVE (NEGATIVE) Salicylates 4.0 (0-20) mg/dL Acetaminophen 0.0 ug/mL Ethyl Alcohol <3 mg/dL Meds: Medications Discontinued Medications Generic Name Dose Route Start Last Admin Trade Name Freq PRN Reason Stop Dose Admin Lorazepam 1 mg 04/22/17 16:20 04/22/17 16:25 Ativan PO 04/22/17 16:21 1 mg ONETIME ONE Administration Departure - Departure Time of Disposition: 17:39 Disposition: DC/Tfer to Psych Hosp/Unit 65 Condition: Good Clinical Impression: Self-harm, Drug abuse - Discharge Information Referrals: PCP,None [Primary Care Provider] - Forms: ED Department Discharge Additional Instructions: The following information is given to patients seen in the emergency department who are being discharged to home. This information is to outline your options for follow-up care. We provide all patients seen in our emergency department with a follow-up referral. The need for follow-up, as well as the timing and circumstances, are variable depending upon the specifics of your emergency department visit. If you don't have a primary care physician on staff, we will provide you with a referral. We always advise you to contact your personal physician following an emergency department visit to inform them of the circumstance of the visit and for follow-up with them and/or the need for any referrals to a consulting specialist. The emergency department will also refer you to a specialist when appropriate. This referral assures that you have the opportunity for followup care with a specialist. All of these measure are taken in an effort to provide you with optimal care, which includes your followup. Under all circumstances we always encourage you to contact your private physician who remains a resource for coordinating your care. When calling for followup care, please make the office aware that this follow-up is from your recent emergency room visit. If for any reason you are refused follow-up, please contact the [facility] emergency department at and asked to speak to the emergency department charge nurse. - My Orders Last 24 Hours: My Active Orders 04/22/17 16:09 EKG Documentation Completion [RC] STAT 04/22/17 17:13 DRUG SCREEN, URINE [URCHEM] Stat UA W/MICROSCOPIC [URIN] Stat - Assessment/Plan Last 24 Hours: My Active Orders 04/22/17 16:09 EKG Documentation Completion [RC] STAT 04/22/17 17:13 DRUG SCREEN, URINE [URCHEM] Stat UA W/MICROSCOPIC [URIN] Stat
[2017-04-22 17:03] LABS: CHLORIDE,CL 103 mmol/L (98-107); SODIUM,NA 139 mmol/L (136-145)
[2017-04-22] MEDS ORDERED: OLANZapine 5 MG Tab PO ONE (19:03)
== END 2017-04-22 19:16 ==
LOC: MW.ED 16:03
DX: T14.91XA Suicide attempt, initial encounter (principal); F19.10 Other psychoactive substance abuse, uncomplicated; F32.9 Major depressive disorder, single episode, unspecified; F41.9 Anxiety disorder, unspecified; Z88.1 Allergy status to other antibiotic agents; Z79.899 Other long term (current) drug therapy; X83.8XXA Intentional self-harm by other specified means, initial encounter
CPT/HCPCS: 36415; 80053; 80305; 81001; 83735; 84443; 85025; 93005; 99285; A9270; G0480; 99283

== ENCOUNTER 2017-08-27 18:29 | Emergency (ER) | payer BC, OTHER ==
[2017-08-27 18:38] VITALS: BP 121/57
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
== END 2017-08-27 18:57 | disposition home or self-care (01) ==
LOC: MW.ED 18:29
DX: Z04.1 Encounter for examination and observation following transport accident (principal); F32.9 Major depressive disorder, single episode, unspecified; F41.9 Anxiety disorder, unspecified; Z88.1 Allergy status to other antibiotic agents; Z79.899 Other long term (current) drug therapy
CPT/HCPCS: 99282; 99284

== ENCOUNTER 2017-10-07 19:24 | Emergency (ER) | payer BC ==
--- NOTE | 2017-10-07 19:27 | EDM.PDOC ---
ED HPI GENERAL MEDICAL PROBLEM - General Stated Complaint: POSITIVE HOME TEST AND NOW BLEEDING Time Seen by Provider: 10/07/17 19:26 Source of Information: Reports: Patient History Limitations: Reports: No Limitations - History of Present Illness INITIAL COMMENTS - FREE TEXT/NARRATIVE: HISTORY AND PHYSICAL: History of present illness: 27-year-old A1 6-7 week female presenting to emergency department with chief complaint of vaginal bleeding 1 day. Patient states that she just found out that she was with at home test x 3. This will be her fourth . She does have a history of 1 spontaneous . States that today she had some light spotting approximately a tablespoon worth. Later this evening she has had some increased cramping and some thicker heavier bleeding. Denies any fever, chills, sore throat, cough, or other signs of systemic action. She denies any dysuria or hematuria. She denies any other vaginal discharge. She has had some mild associated nausea. She has not seen an photograph printer. Review of systems: As per history of present illness and below otherwise all systems reviewed and negative. Past medical history: As per history of present illness and as reviewed below otherwise noncontributory. Surgical history: As per history of present illness and as reviewed below otherwise noncontributory. Social history: No reported history of drug or alcohol abuse. Family history: As per history of present illness and as reviewed below otherwise noncontributory. Physical exam: HEENT: Atraumatic, normocephalic, pupils reactive, negative for conjunctival pallor or scleral icterus, mucous membranes moist, throat clear, neck supple, nontender, trachea midline. Lungs: Clear to auscultation, breath sounds equal bilaterally, chest nontender. Heart: S1S2, regular, negative for clicks, rubs, or JVD. Abdomen: Soft, nondistended, nontender. Negative for masses or hepatosplenomegaly. Negative for costovertebral tenderness. Pelvis: Stable nontender. Genitourinary: Deferred. Rectal: Deferred. Extremities: Atraumatic, negative for cords or calf pain. Neurovascular unremarkable. Neuro: Awake, alert, oriented. Cranial nerves II through XII unremarkable. Cerebellum unremarkable. Motor and sensory unremarkable throughout. Exam nonfocal. Diagnostics: CBC, Rh, hCG Quant, transvaginal ultrasound Therapeutics: [] Impression: Vaginal bleeding False home test Plan: HCG Quant was 9 and ultrasound showed no evidence of intrauterine so talking with patient she either aborted recent significantly before she came in emergency department or her test at home was false. This was explained and she is going to follow-up with CR[employer] AND LOAN COLLECTIONS SUPERVISOR here. She was instructed to return to emergency department if any new or worsening symptoms. Definitive disposition and diagnosis as appropriate pending reevaluation and review of above. lower abdomen Pain Score (Numeric/FACES): 6 - Related Data Allergies Allergy/AdvReac Type Severity Reaction Status Date / Time clindamycin Allergy Rash Verified 10/07/17 19:37 Home Meds: Home Meds Divalproex Sodium [Depakote] 500 mg PO BID 08/27/17 [History] clonazePAM [Clonazepam] 1 mg PO TID PRN 10/07/17 [History] Past Medical History - Past Health History Medical/Surgical History: Denies Medical/Surgical History HEENT History: Reports: None Cardiovascular History: Reports: None Respiratory History: Reports: None Gastrointestinal History: Reports: None Genitourinary History: Reports: None CREDIT AND LOAN COLLECTIONS SUPERVISOR History: Reports: Other CREDIT AND LOAN COLLECTIONS SUPERVISOR History: 29 weeks 01/25/2015 Musculoskeletal History: Reports: None Neurological History: Reports: None Psychiatric History: Reports: Anxiety, Depression Endocrine/Metabolic History: Reports: None Hematologic History: Reports: None Immunologic History: Reports: None Oncologic (Cancer) History: Reports: None Dermatologic History: Reports: None - Infectious Disease History Infectious Disease History: Reports: Hepatitis C - Past Surgical History Head Surgeries/Procedures: Reports: None GI Surgical History: Reports: Cholecystectomy Female Surgical History: Reports: D&C Musculoskeletal Surgical History: Reports: None Social & Family History - Family History Family Medical History: Noncontributory - Caffeine Use Caffeine Use: Reports: Coffee Caffeine Use Comment: 1cup/day ED ROS GENERAL - Review of Systems Review Of Systems: ROS reveals no pertinent complaints other than HPI. ED EXAM, GENERAL - Physical Exam Exam: See Below Course - Vital Signs Last Recorded V/S: Last Vital Signs Temp 98.7 F 10/07/17 19:34 Pulse 93 10/07/17 19:34 Resp 12 10/07/17 19:34 BP 121/67 10/07/17 19:34 Pulse Ox 97 10/07/17 19:34 - Orders/Labs/Meds Orders: Active Orders 24 hr Category Date Time Status OB Transvaginal [US] Stat Exams 10/07/17 19:46 Taken Labs: Laboratory Tests 10/07/17 10/07/17 10/07/17 Range/Units 19:55 19:55 19:55 WBC 6.48 (4.0-11.0) K/uL RBC 4.59 (4.30-5.90) M/uL Hgb 14.3 (12.0-16.0) g/dL Hct 40.7 (36.0-46.0) % MCV 88.7 (80.0-98.0) fL MCH 31.2 (27.0-32.0) pg MCHC 35.1 (31.0-37.0) g/dL RDW Std Deviation 39.8 (28.0-62.0) fl RDW Coeff of Alana 12 (11.0-15.0) % Plt Count 213 (150-400) K/uL MPV 10.90 (7.40-12.00) fL Neut % (Auto) 58.8 (48.0-80.0) % Lymph % (Auto) 31.2 (16.0-40.0) % [place] % (Auto) 7.6 (0.0-15.0) % Eos % (Auto) 1.9 (0.0-7.0) % Baso % (Auto) 0.5 (0.0-1.5) % Neut # (Auto) 3.8 (1.4-5.7) K/uL Lymph # (Auto) 2.0 (0.6-2.4) K/uL [place] # (Auto) 0.5 (0.0-0.8) K/uL Eos # (Auto) 0.1 (0.0-0.7) K/uL Baso # (Auto) 0.0 (0.0-0.1) K/uL Nucleated RBC % 0.0 /100WBC Nucleated RBCs # 0 K/uL HCG, Quant 9.0 mIU/mL Blood Type O POSITIVE Meds: Medications Discontinued Medications Generic Name Dose Route Start Last Admin Trade Name Freq PRN Reason Stop Dose Admin Ketorolac Tromethamine 60 mg 10/07/17 22:07 Toradol IM 10/07/17 22:08 ONETIME ONE Departure - Departure Time of Disposition: 22:15 Disposition: Home, Self-Care 01 Condition: Good Clinical Impression: Vagina bleeding - Discharge Information Referrals: PCP,None [Primary Care Provider] - Additional Instructions: My general discharge The following information is given to patients seen in the emergency department who are being discharged to home. This information is to outline your options for follow-up care. We provide all patients seen in our emergency department with a follow-up referral. The need for follow-up, as well as the timing and circumstances, are variable depending upon the specifics of your emergency department visit. If you don't have a primary care physician on staff, we will provide you with a referral. We always advise you to contact your personal physician following an emergency department visit to inform them of the circumstance of the visit and for follow-up with them and/or the need for any referrals to a consulting specialist. The emergency department will also refer you to a specialist when appropriate. This referral assures that you have the opportunity for follow-up care with a specialist. All of these measure are taken in an effort to provide you with optimal care, which includes your follow-up. Under all circumstances we always encourage you to contact your private physician who remains a resource for coordinating your care. When calling for follow-up care, please make the office aware that this follow-up is from your recent emergency room visit. If for any reason you are refused follow-up, please contact the [facility] Emergency Department at and asked to speak to the emergency department charge nurse. [facility] Primary Care - Women's Health [address] [place] [id number] Please call above with [employer] LOAN COLLECTIONS SUPERVISOR on Sunday. Return to emergency department if any new or worsening symptoms. - My Orders Last 24 Hours: My Active Orders 10/07/17 19:46 OB Transvaginal [US] Stat - Assessment/Plan Last 24 Hours: My Active Orders 10/07/17 19:46 OB Transvaginal [US] Stat
[2017-10-07] MEDS ORDERED: Ketorolac 60 MG/2 ML SDV IM ONE (22:07)
[2017-10-07 22:25] VITALS: BP 114/68
--- NOTE | 2017-10-08 14:14 | US ---
EXAM DATE: 10/07/17 PATIENT'S AGE: 27 Patient: LADONNA PICKENS Facility: [place], [place] Site . Site : 1990 Study: US OB Pelvis [id number]/[id number] 9:31:28 PM Ordering Physician: Santosh Devries Final Report: INDICATION: Generalized pain TECHNIQUE: Ultrasound OB pelvis transvaginal. Real time pringle scale imaging of the pelvis was performed. COMPARISON: None FINDINGS: Sonographic imaging demonstrates evidence of an intrauterine . No fluid or debris in the endometrial canal. The myometrium appears normal. The ovaries are of normal size. There are no suspicious fluid collections noted in the cul-de-sac. IMPRESSION: No evidence of intrauterine . No fluid or debris in the endometrial canal. Sonographically normal ovaries and adnexa. Dictated by Reynaldo Akbar MD @ 10/07/2017 10:07:19 PM Dictated by: Reynaldo Akbar MD @ 10/07/2017 22:07:28 (Electronic Signature) Report Signed by Proxy. NILA
== END 2017-10-07 22:25 | disposition home or self-care (01) ==
LOC: MW.ED 19:24
DX: N93.9 Abnormal uterine and vaginal bleeding, unspecified (principal)
CPT/HCPCS: 36415; 76817; 76817-26; 84702; 85025; 86900; 86901; 99284-25

== ENCOUNTER 2018-06-02 10:10 | Observation (INO) | payer SELFPAY ==
[2018-06-02] MEDS ORDERED: Ondansetron 4 MG/2 ML SDV IVPUSH PRN (10:51)
[2018-06-02] MEDS ORDERED: Lactated Ringers 1,000 ML IV ONE (10:51)
[2018-06-02] MEDS ORDERED: Sodium Chloride 0.9% 2.5 ML Syringe FLUSH PRN (10:54)
[2018-06-02] MEDS ORDERED: Sodium Chloride 0.9% 10 ML SDV IV PRN (10:54)
[2018-06-02] MEDS ORDERED: Sodium Chloride 0.9% 10 ML Syringe FLUSH PRN (10:54)
[2018-06-02] MEDS ORDERED: Promethazine 25 MG Supp RECTAL ONE ×2 (11:47→12:15)
[2018-06-02 11:51] LABS: CHLORIDE,CL 104 mmol/L (98-107); SODIUM,NA 137 mmol/L (136-145)
[2018-06-02 13:03] LABS: HEMOGLOBIN A1C 4.8 % (4.5-6.2)
[2018-06-02] MEDS ORDERED: Ondansetron 4 MG/2 ML SDV IVPUSH ONE (13:53)
[2018-06-02] MEDS: Lactated Ringers 1,000 ML IV SCH ×3 (14:00→23:28)
--- NOTE | 2018-06-02 14:08 | US ---
CLINICAL HISTORY: Decreased movement TECHNIQUE: Real time pringle scale imaging of the fetus was performed as well as color Doppler and spectral Doppler analysis of the umbilical artery. FINDINGS: Sonographic imaging demonstrates a single living intrauterine gestation. Fetus demonstrates a regular cardiac rate of 131 beats per minute. Fetus has a cephalic orientation. The placenta lies anterior . Amniotic fluid volume appears normal and there is a four-quadrant fluid volume index measurement of 14.6 cm . Cervical length measures 4.2 cm. Biophysical profile score is 8 of 8. IMPRESSION: 1. Single live intrauterine gestation. Biophysical profile score is 8 of 8. Dictated by Diana Ignacio MD @ Jun 02 2018 2:05PM Signed by Dr. Diana Ignacio @ Jun 02 2018 2:07PM
[2018-06-02] MEDS ORDERED: hydrOXYzine Pamoate 25 MG Cap PO ONE (15:57)
[2018-06-02] MEDS: Promethazine 25 MG Supp RECTAL SCH (18:27)
--- NOTE | 2018-06-02 18:55 | HP ---
DATE OF : 1990 PRIMARY CARE PHYSICIAN: Unknown PCP CHIEF COMPLAINT: Nausea, vomiting, abdominal pain. HISTORY OF PRESENT ILLNESS: This is a 27-year-old female, G5, P 2-0-2-2. She presents at 34 weeks' gestation. She has had care with Seferino Andrew in licensed direct entry midwife in [place]. She has suffered earlier in the with severe hyperemesis. She has lost over 50 pounds. This has been associated with abdominal pain and diarrhea. There is a working diagnosis of Crohn disease, however, this has not been able to be verified during the . She has been actually doing fairly well until yesterday at approximately 5 p.m. when she developed abdominal cramps, nausea and vomiting, and she has been vomiting continuously, unable to keep anything down over the last 18 hours. She reports abdominal cramping. She does not feel that these are contractions. We have not picked up any contractions on the monitor. She presented last night for evaluation and cervix was 1 and thick, and she has not had any vaginal discharge, bleeding, or loss of fluid. She does report some movement. She has had a history of hypokalemia during the with dehydration due to hyperemesis. She presents for evaluation and management of nausea, vomiting, and abdominal cramping in . PAST OBSTETRIC HISTORY: She is G5, P 2-0-2-2. She had an on September 20, 2014, 40 weeks, 7 pounds 2 ounces. April 13, 2015, she had of a 6 pounds 9 ounces infant at 40 weeks' gestation. She has had two 1st trimester spontaneous abortions. She had a D and C with one of them. She has a history of gonorrhea and chlamydia in 2014. PAST MEDICAL HISTORY: Significant for polysubstance abuse, most recently has been using oral cannabinoids for nausea. The urine drug screens have been negative in [place]. She has a history of bipolar mood disorder, anxiety, depression, hepatitis C carrier, status post interferon treatment with most recent undetectable viral load. PAST SURGICAL HISTORY: Gastroscopy, laparoscopic cholecystectomy, and D and C. FAMILY HISTORY: Negative for chronic illness. SOCIAL HISTORY: She is . She lives with her and two children. She denies use of tobacco. She does use marijuana, mostly in edible form. She denies use of other street drugs at this time. CURRENT MEDICATIONS: vitamins. ALLERGIES: Clindamycin. REVIEW OF SYSTEMS: Negative for headache or visual changes. Positive for abdominal pain, cramping, nausea, vomiting, diarrhea. Negative for rash. Negative for cardiovascular. Negative for pulmonary. Negative for rheumatologic. PHYSICAL EXAMINATION: VITAL SIGNS: Temperature is 98.9, blood pressure 125/66, pulse is 78. heart tones are 125 with moderate variability. At times, episodes of marked variability. Difficult to keep the baby on the heart tone monitor due to emesis. She has no contractions. GENERAL: She appears to be cramping, curled in the position, but is coherent and provides a good history. NECK: Supple without lymphadenopathy or thyromegaly. Mucous membranes are dry. LUNGS: Clear. CARDIOVASCULAR: Regular rate without murmur. ABDOMEN: Soft, gravid. Fundus is nontender. There is no right upper quadrant tenderness. There is no right lower quadrant tenderness. There is no rebound. No guarding. EXTREMITIES: Show trace edema. GENITOURINARY: Vaginal exam is not repeated. LABORATORY STUDIES: Include hemoglobin 11.9, hematocrit 35.0, platelet count 205, white blood cell count 13.9. Sodium 137, potassium 3.7, chloride 104, CO2 of 19.5, BUN 9, creatinine 0.5, glucose 151. Total bilirubin 0.4, AST 13, ALT 17. ASSESSMENT AND PLAN: We will observe with IV hydration and antiemetics. Initial dose of Zofran was not helpful. She agreed to Phenergan suppository. She denied Phenergan injection, and due to difficulty with monitoring the fetus, we will proceed with a biophysical profile. Continue with hydration. Monitor for improvement and may discharge once nausea is improved, and she is well hydrated. HOLLIE / MICHAEL /[id number]
[2018-06-02] MEDS: Ondansetron 4 MG/2 ML SDV IVPUSH SCH (19:37)
[2018-06-02] MEDS ORDERED: Citric Acid/Sodium Citrate Solution 30 ML Cup PO ONE (20:01)
[2018-06-02] MEDS: Promethazine 25 MG/ML SDV IM PRN (23:34)
[2018-06-03] MEDS: hydrOXYzine Pamoate 25 MG Cap PO PRN ×4 (00:07→14:54)
[2018-06-03] MEDS: Ondansetron 4 MG/2 ML SDV IVPUSH PRN ×2 (01:17→19:59)
[2018-06-03] MEDS: Lactated Ringers 1,000 ML IV SCH ×3 (04:00→14:46)
[2018-06-03] MEDS: Ondansetron 4 MG/2 ML SDV IVPUSH SCH ×2 (05:29→14:29)
[2018-06-03] MEDS: Promethazine 25 MG/ML SDV IM PRN ×3 (05:30→19:58)
[2018-06-03] MEDS: Metoclopramide 10 MG/2 ML SDV IVPUSH PRN ×2 (10:13→20:30)
--- NOTE | 2018-06-03 13:27 | US ---
EXAMINATION: Biophysical profile HISTORY: Excessive vomiting COMPARISON: 06/02/2018 TECHNIQUE: Grayscale, color Doppler, and M-mode images obtained. FINDINGS: There is a single live intrauterine noted in a cephalic position. Placenta is anterior. 4 chamber heart is noted. heart rate is 147 bpm. Amniotic fluid index is normal at 13 cm. Positive breathing, movement, and tone. IMPRESSION: Biophysical profile 09/12.
--- NOTE | 2018-06-03 13:53 | US ---
EXAMINATION: Abdominal ultrasound HISTORY: Excessive vomiting COMPARISON: MRI dated 11/14/2018 TECHNIQUE: Grayscale, color Doppler, and spectral Doppler imaging obtained of the abdomen. FINDINGS: The visualized IVC and aorta appear normal. The liver is normal in contour and echotexture without a focal hepatic mass. Common bile duct measures up to 7 mm. Right kidney measures at least 12.3 cm and the left kidney measures up to 11.1 cm without evidence of significant hydronephrosis. The renal medullary areas appear echogenic relative to the cortices. Spleen appears normal. No abdominal ascites. Cholecystectomy. IMPRESSION: 1. No acute findings noted within the abdomen. 2. 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
--- NOTE | 2018-06-03 14:26 | PCM.HP ---
H&P History of Present Illness - General Date of Service: 06/03/18 Admit Problem/Dx: Admission Diagnosis/Problem Admission Diagnosis/Problem - planned - History of Present Illness Initial Comments - Free Text/Narative: 27 yo female who is 34 weeks who was admitted for nausea, vomiting and abdominal cramping. She has a history of Hep C and has been treated. She reports that after the treatment she has developed neuropathy and problems with her bowels. Problems with abdominal cramping, nausea and vomiting started when she was 20 years old. 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 She has had a gallbladder removed. Earlier in her she has had hyperemesis. Over the past few months she has had problems with diarrhea going 7-8 times a day often having incontinence. She has lost 50 lbs. She reports out of desperation using canniboid oil which did give her 75% relief from nausea. For the past four days she has had no stools and has not been passing gas. Past several days her emesis has changed from yellow to green to black. In the hospital she has been vomiting every hour. - Related Data Allergies/Adverse Reactions: Allergies Allergy/AdvReac Type Severity Reaction Status Date / Time clindamycin Allergy Unknown Rash Verified 11/18/17 19:14 Past Medical History - Past Health History Medical/Surgical History: Denies Medical/Surgical History HEENT History: Reports: None Cardiovascular History: Reports: None Respiratory History: Reports: None Gastrointestinal History: Reports: None Genitourinary History: Reports: None MANAGER MUTUAL FUND History: Reports: , Other (See Below) Other OB/BYN History: stated having ovarian cyst Musculoskeletal History: Reports: Fibromyalgia Neurological History: Reports: Seizure Psychiatric History: Reports: Anxiety, Bipolar, Depression Endocrine/Metabolic History: Reports: None Hematologic History: Reports: None Immunologic History: Reports: None Oncologic (Cancer) History: Reports: None Dermatologic History: Reports: None - Infectious Disease History Infectious Disease History: Reports: None Other Infectious Disease History: been treated for Hepatitis C - Past Surgical History Head Surgeries/Procedures: Reports: None GI Surgical History: Reports: Cholecystectomy Female Surgical History: Reports: D&C Musculoskeletal Surgical History: Reports: None Social & Family History - Family History Family Medical History: Noncontributory - Caffeine Use Caffeine Use: Reports: None Caffeine Use Comment: 1cup/day H&P Review of Systems - Review of Systems: Review Of Systems: ROS reveals no pertinent complaints other than HPI. Exam - Exam Exam: See Below - Vital Signs Weight: 79.379 kg - Exam General: Alert, Oriented HEENT: Mucosa Moist & [place] Lungs: Clear to Auscultation, Normal Respiratory Effort Cardiovascular: Regular Rate, Regular Rhythm GI/Abdominal Exam: Soft, Non-Tender. No: Guarding, Rigid Extremities: Non-Tender, No Pedal Edema Skin: Warm, Dry, Intact - Patient Data Lab Results Last 24 hrs: Laboratory Results - last 24 hr 06/02/18 06/03/18 06/03/18 Range/Units 17:30 08:48 08:48 Amylase 87 (25-115) U/L Lipase 185 (73-393) U/L Urine Color YELLOW Urine Appearance HAZY Urine pH 6.0 (5.0-8.0) Ur Specific [place] >= 1.030 (1.001-1.035) Urine Protein 30 H (NEGATIVE) mg/dL Urine Glucose (UA) NEGATIVE (NEGATIVE) mg/dL Urine Ketones >=80 (NEGATIVE) mg/dL Urine Occult Blood NEGATIVE (NEGATIVE) Urine Nitrite NEGATIVE (NEGATIVE) Urine Bilirubin NEGATIVE (NEGATIVE) Urine Urobilinogen 0.2 (<2.0) EU/dL Ur Leukocyte Esterase NEGATIVE (NEGATIVE) Result Diagrams: 06/02/18 11:10 06/02/18 11:10 Problem List Initiated/Reviewed/Updated: Yes Orders Last 24hrs: Active Orders 24 hr Category Date Time Status CBC WITH AUTO DIFF [HEME] Stat Lab 06/03/18 14:10 Received CMP [COMPREHENSIVE METABOLIC PN,CMP] [CHEM] Routine Lab 06/03/18 14:10 Received LACTIC ACID,WHOLE BLOOD [BG] Stat Lab 06/03/18 14:10 Received MAGNESIUM [CHEM] Stat Lab 06/03/18 14:10 Received Lactated Ringers [Ringers, Lactated] 1,000 ml Med 06/02/18 14:00 Active IV ASDIRECTED Metoclopramide [Reglan] Med 06/03/18 10:00 Active 10 mg IVPUSH Q8H PRN Ondansetron [Zofran] Med 06/02/18 22:42 Active 4 mg IVPUSH Q4H PRN Ondansetron [Zofran] Med 06/02/18 20:00 Active 4 mg IVPUSH Q6H Promethazine [Phenadoz] Med 06/02/18 18:00 Active 25 mg RECTAL Q6H Promethazine [Phenergan] Med 06/02/18 22:39 Active 25 mg IM Q6H PRN hydrOXYzine pamoate [Vistaril] Med 06/02/18 22:41 Active 50 mg PO Q6H PRN Medication Orders Hydroxyzine Pamoate (Vistaril) 50 mg PO Q6H PRN PRN Reason: Nausea/Vomiting Last Admin: 06/03/18 13:14 Dose: 50 mg Admin: 06/03/18 06:57 Dose: 50 mg Admin: 06/03/18 00:07 Dose: 50 mg Lactated Ringer's (Ringers, Lactated) 1,000 mls @ 250 mls/hr IV ASDIRECTED [facility] Last Admin: 06/03/18 09:39 Dose: 250 mls/hr Infusion: 06/03/18 08:00 Dose: 250 mls/hr Admin: 06/03/18 04:00 Dose: 250 mls/hr Infusion: 06/03/18 03:28 Dose: 250 mls/hr Admin: 06/02/18 23:28 Dose: 250 mls/hr Infusion: 06/02/18 22:26 Dose: 250 mls/hr Admin: 06/02/18 18:26 Dose: 250 mls/hr Infusion: 06/02/18 18:00 Dose: 250 mls/hr Admin: 06/02/18 14:00 Dose: 250 mls/hr Metoclopramide HCl (Reglan) 10 mg IVPUSH Q8H PRN PRN Reason: Nausea/Vomiting Last Admin: 06/03/18 10:13 Dose: 10 mg Ondansetron HCl (Zofran) 4 mg IVPUSH Q6H [facility] Last Admin: 06/03/18 05:29 Dose: 4 mg Admin: 06/02/18 19:37 Dose: 4 mg Ondansetron HCl (Zofran) 4 mg IVPUSH Q4H PRN PRN Reason: Nausea/Vomiting Last Admin: 06/03/18 01:17 Dose: 4 mg Promethazine HCl (Phenadoz) 25 mg RECTAL Q6H [facility] Last Admin: 06/02/18 18:27 Dose: 25 mg Promethazine HCl (Phenergan) 25 mg IM Q6H PRN PRN Reason: Nausea/Vomiting Last Admin: 06/03/18 13:03 Dose: 25 mg Admin: 06/03/18 05:30 Dose: 25 mg Admin: 06/02/18 23:34 Dose: 25 mg Sodium Chloride (Saline Flush) 10 ml FLUSH ASDIRECTED PRN PRN Reason: Keep Vein Open Sodium Chloride (Saline Flush) 2.5 ml FLUSH ASDIRECTED PRN PRN Reason: Keep Vein Open Sodium Chloride (Normal Saline) 10 ml IV ASDIRECTED PRN PRN Reason: IV Use Assessment/Plan Comment:: 27 yo female admitted for intractable nausea, vomiting, and abdominal pain. I would recommend repeat CMP, CBC, lactic and magnesium level. Patient may have an obstruction so would recommend consulting general surgery. Alk Phos elevated yesterday, no dilation of CBD seen on ultrasound. I spoke with Dr. Morris Reyes regarding recommendations and she stated she would speak with the strategic communications manager surgeon.
[2018-06-03 15:08] LABS: CHLORIDE,CL 106 mmol/L (98-107); SODIUM,NA 138 mmol/L (136-145)
--- NOTE | 2018-06-03 17:52 | PCM.CONS ---
H&P History of Present Illness - General Date of Service: 06/03/18 Admit Problem/Dx: Admission Diagnosis/Problem Admission Diagnosis/Problem - planned Source of Information: Patient History Limitations: Reports: No Limitations - History of Present Illness Initial Comments - Free Text/Narative: Patient is a 27 year old female who is 34 weeks . She was admitted to the OB floor with medicine following for intractable nausea and vomiting. She has a long history of GI issues including diarrhea and was diagnosed with IBS at one point. She thinks she may have Crohn's disease. According to our records she had some endoscopic procedure in the past. Her past medical history is also significant for fibromyalgia, bipolar, anxiety, depression, mood swings, with a history of addiction. This has been complicated by hyperemesis gravidum. She states that she did not have this with her previous two pregnancies. Her symptoms worsened 3 days ago. She denies any travel or change in diet. She denies any infectious contacts. She had been taking Cannibis for its anti-emetic effects, but denies use other than a small dose once per day. She has not had a BM in 3 days. She denies passing flatus. She is still drinking fluids and continues to have nausea and vomiting. She claims there was coffee ground like emesis as well as green emesis. She complains of abdominal pain that is on the sides. She complaints of pain more on the left than the right when asked. She was admitted and started on IVF. Her vitals were stable. Abdominal US was normal. She was given prn nausea meds which were then scheduled as they gave her better relief when given together. Despite this she still has symptoms. - Related Data Allergies/Adverse Reactions: Allergies Allergy/AdvReac Type Severity Reaction Status Date / Time clindamycin Allergy Unknown Rash Verified 11/18/17 19:14 Past Medical History - Past Health History Medical/Surgical History: Denies Medical/Surgical History HEENT History: Reports: None Cardiovascular History: Reports: None Respiratory History: Reports: None Gastrointestinal History: Reports: None Genitourinary History: Reports: None HYDROLOGIC MODELER History: Reports: , Other (See Below) Other OB/BYN History: stated having ovarian cyst Musculoskeletal History: Reports: Fibromyalgia Neurological History: Reports: Seizure Psychiatric History: Reports: Anxiety, Bipolar, Depression Endocrine/Metabolic History: Reports: None Hematologic History: Reports: None Immunologic History: Reports: None Oncologic (Cancer) History: Reports: None Dermatologic History: Reports: None - Infectious Disease History Infectious Disease History: Reports: None Other Infectious Disease History: been treated for Hepatitis C - Past Surgical History Head Surgeries/Procedures: Reports: None GI Surgical History: Reports: Cholecystectomy Female Surgical History: Reports: D&C Musculoskeletal Surgical History: Reports: None Social & Family History - Family History Family Medical History: Noncontributory - Caffeine Use Caffeine Use: Reports: None Caffeine Use Comment: 1cup/day H&P Review of Systems - Review of Systems: Review Of Systems: ROS reveals no pertinent complaints other than HPI. Exam - Exam Exam: See Below - Vital Signs Weight: 79.379 kg - Exam Quality Assessment: Supplemental Oxygen General: Alert, Oriented, Mild Distress, Other (Actively having emesis when I was examining. ) HEENT: Conjunctiva Clear, Mucosa Moist & [place], Posterior Pharynx Clear Lungs: Clear to Auscultation, Normal Respiratory Effort Cardiovascular: Regular Rhythm, Tachycardia (due to just vomiting) GI/Abdominal Exam: Soft, Guarding (voluntary ), Tender (with deep and light palpation), Other (vomitus appears watery green). No: Rigid, Rebound Back Exam: Normal Inspection Extremities: Normal Inspection Skin: Warm, Dry, Intact Neurological: Cranial Nerves Intact Neuro Extensive - Mental Status: Alert, Oriented x3 Psychiatric: Alert, Anxious - Patient Data Lab Results Last 24 hrs: Laboratory Results - last 24 hr 06/02/18 06/03/18 06/03/18 Range/Units 17:30 08:48 08:48 WBC (4.0-11.0) K/uL RBC (4.30-5.90) M/uL Hgb (12.0-16.0) g/dL Hct (36.0-46.0) % MCV (80.0-98.0) fL MCH (27.0-32.0) pg MCHC (31.0-37.0) g/dL RDW Std Deviation (28.0-62.0) fl RDW Coeff of Alana (11.0-15.0) % Plt Count (150-400) K/uL MPV (7.40-12.00) fL Add Manual Diff Neutrophils % (Manual) (48.0-80.0) % Band Neutrophils % % Lymphocytes % (Manual) (16.0-40.0) % Monocytes % (Manual) (0.0-15.0) % Metamyelocytes % % Nucleated RBC % /100WBC Absolute Seg Neuts (1.4-5.7) Band Neutrophils # Lymphocytes # (Manual) (0.6-2.4) Monocytes # (Manual) (0.0-0.8) Absolute Metamyelocyte Nucleated RBCs # K/uL Lactate (0.20-2.00) mmol/L Sodium (136-145) mmol/L Potassium (3.5-5.1) mmol/L Chloride (98-107) mmol/L Carbon Dioxide (21.0-32.0) mmol/L BUN (7.0-18.0) mg/dL Creatinine (0.6-1.0) mg/dL Est Cr Clr Drug Dosing mL/min Estimated GFR (MDRD) ml/min Glucose (74-106) mg/dL Calcium (8.5-10.1) mg/dL Magnesium (1.8-2.4) mg/dL Total Bilirubin (0.2-1.0) mg/dL AST (15-37) IU/L ALT (14-63) IU/L Alkaline Phosphatase (46-116) U/L Total Protein (6.4-8.2) g/dL Albumin (3.4-5.0) g/dL Globulin (2.6-4.0) g/dL Albumin/Globulin Ratio (0.9-1.6) Amylase 87 (25-115) U/L Lipase 185 (73-393) U/L Urine Color YELLOW Urine Appearance HAZY Urine pH 6.0 (5.0-8.0) Ur Specific [place] >= 1.030 (1.001-1.035) Urine Protein 30 H (NEGATIVE) mg/dL Urine Glucose (UA) NEGATIVE (NEGATIVE) mg/dL Urine Ketones >=80 (NEGATIVE) mg/dL Urine Occult Blood NEGATIVE (NEGATIVE) Urine Nitrite NEGATIVE (NEGATIVE) Urine Bilirubin NEGATIVE (NEGATIVE) Urine Urobilinogen 0.2 (<2.0) EU/dL Ur Leukocyte Esterase NEGATIVE (NEGATIVE) H. pylori IgG Antibody (NEG) 06/03/18 06/03/18 06/03/18 Range/Units 14:10 14:10 14:10 WBC 15.21 H (4.0-11.0) K/uL RBC 3.77 L (4.30-5.90) M/uL Hgb 11.3 L (12.0-16.0) g/dL Hct 33.4 L (36.0-46.0) % MCV 88.6 (80.0-98.0) fL MCH 30.0 (27.0-32.0) pg MCHC 33.8 (31.0-37.0) g/dL RDW Std Deviation 40.3 (28.0-62.0) fl RDW Coeff of Alana 13 (11.0-15.0) % Plt Count 233 (150-400) K/uL MPV 10.10 (7.40-12.00) fL Add Manual Diff YES Neutrophils % (Manual) 84 H (48.0-80.0) % Band Neutrophils % 1 % Lymphocytes % (Manual) 10 L (16.0-40.0) % Monocytes % (Manual) 4 (0.0-15.0) % Metamyelocytes % 1 % Nucleated RBC % 0.0 /100WBC Absolute Seg Neuts 12.8 H (1.4-5.7) Band Neutrophils # 0.2 Lymphocytes # (Manual) 1.5 (0.6-2.4) Monocytes # (Manual) 0.6 (0.0-0.8) Absolute Metamyelocyte 0.2 Nucleated RBCs # 0 K/uL Lactate 0.7 (0.20-2.00) mmol/L Sodium 138 (136-145) mmol/L Potassium 3.5 (3.5-5.1) mmol/L Chloride 106 (98-107) mmol/L Carbon Dioxide 16.4 L (21.0-32.0) mmol/L BUN 3 L (7.0-18.0) mg/dL Creatinine 0.5 L (0.6-1.0) mg/dL Est Cr Clr Drug Dosing 132.49 mL/min Estimated GFR (MDRD) > 60.0 ml/min Glucose 99 (74-106) mg/dL Calcium 8.5 (8.5-10.1) mg/dL Magnesium (1.8-2.4) mg/dL Total Bilirubin 0.6 (0.2-1.0) mg/dL AST 14 L (15-37) IU/L ALT 20 (14-63) IU/L Alkaline Phosphatase 374 H (46-116) U/L Total Protein 6.4 (6.4-8.2) g/dL Albumin 2.8 L (3.4-5.0) g/dL Globulin 3.6 (2.6-4.0) g/dL Albumin/Globulin Ratio 0.8 L (0.9-1.6) Amylase (25-115) U/L Lipase (73-393) U/L Urine Color Urine Appearance Urine pH (5.0-8.0) Ur Specific [place] (1.001-1.035) Urine Protein (NEGATIVE) mg/dL Urine Glucose (UA) (NEGATIVE) mg/dL Urine Ketones (NEGATIVE) mg/dL Urine Occult Blood (NEGATIVE) Urine Nitrite (NEGATIVE) Urine Bilirubin (NEGATIVE) Urine Urobilinogen (<2.0) EU/dL Ur Leukocyte Esterase (NEGATIVE) H. pylori IgG Antibody (NEG) 06/03/18 06/03/18 Range/Units 14:10 14:31 WBC (4.0-11.0) K/uL RBC (4.30-5.90) M/uL Hgb (12.0-16.0) g/dL Hct (36.0-46.0) % MCV (80.0-98.0) fL MCH (27.0-32.0) pg MCHC (31.0-37.0) g/dL RDW Std Deviation (28.0-62.0) fl RDW Coeff of Alana (11.0-15.0) % Plt Count (150-400) K/uL MPV (7.40-12.00) fL Add Manual Diff Neutrophils % (Manual) (48.0-80.0) % Band Neutrophils % % Lymphocytes % (Manual) (16.0-40.0) % Monocytes % (Manual) (0.0-15.0) % Metamyelocytes % % Nucleated RBC % /100WBC Absolute Seg Neuts (1.4-5.7) Band Neutrophils # Lymphocytes # (Manual) (0.6-2.4) Monocytes # (Manual) (0.0-0.8) Absolute Metamyelocyte Nucleated RBCs # K/uL Lactate (0.20-2.00) mmol/L Sodium (136-145) mmol/L Potassium (3.5-5.1) mmol/L Chloride (98-107) mmol/L Carbon Dioxide (21.0-32.0) mmol/L BUN (7.0-18.0) mg/dL Creatinine (0.6-1.0) mg/dL Est Cr Clr Drug Dosing mL/min Estimated GFR (MDRD) ml/min Glucose (74-106) mg/dL Calcium (8.5-10.1) mg/dL Magnesium 1.7 L (1.8-2.4) mg/dL Total Bilirubin (0.2-1.0) mg/dL AST (15-37) IU/L ALT (14-63) IU/L Alkaline Phosphatase (46-116) U/L Total Protein (6.4-8.2) g/dL Albumin (3.4-5.0) g/dL Globulin (2.6-4.0) g/dL Albumin/Globulin Ratio (0.9-1.6) Amylase (25-115) U/L Lipase (73-393) U/L Urine Color Urine Appearance Urine pH (5.0-8.0) Ur Specific [place] (1.001-1.035) Urine Protein (NEGATIVE) mg/dL Urine Glucose (UA) (NEGATIVE) mg/dL Urine Ketones (NEGATIVE) mg/dL Urine Occult Blood (NEGATIVE) Urine Nitrite (NEGATIVE) Urine Bilirubin (NEGATIVE) Urine Urobilinogen (<2.0) EU/dL Ur Leukocyte Esterase (NEGATIVE) H. pylori IgG Antibody NEGATIVE (NEG) Result Diagrams: 06/03/18 14:10 06/03/18 14:10 Consult PN Assessment/Plan Procedures: Procedures ASSAY OF LIPASE (11/14/17) ASSAY OF MAGNESIUM (04/22/17) ASSAY OF TROPONIN QUANT (11/12/15) ASSAY THYROID STIM HORMONE (04/22/17) BLOOD TYPING SEROLOGIC ABO (01/23/18) BLOOD TYPING SEROLOGIC RH(D) (01/23/18) CHANDRAKANT DNA DIR PROBE (12/25/17) CHEST X-RAY 2VW FRONTAL&LATL (11/12/15) CHORIONIC GONADOTROPIN TEST (11/15/17) COMPLETE CBC AUTOMATED (01/23/18) COMPLETE CBC W/AUTO DIFF WBC (11/18/17) COMPREHEN METABOLIC PANEL (11/18/17) CT ABD & PELVIS W/O CONTRAST (05/11/14) CULTURE SCREEN ONLY (01/25/15) DRUG TEST PRSMV DIR OPT OBS (01/23/18) ECHO EXAM OF ABDOMEN (11/13/17) ELECTROCARDIOGRAM TRACING (04/22/17) EMERGENCY DEPT VISIT (11/18/17) EMERGENCY DEPT VISIT (04/22/17) EMERGENCY DEPT VISIT (02/03/17) EMERGENCY DEPT VISIT (09/10/16) EMERGENCY DEPT VISIT (11/12/15) EMERGENCY DEPT VISIT (09/24/14) EMERGENCY DEPT VISIT (05/11/14) EVAL AMNIOTIC FLUID PROTEIN (04/06/15) EVALUATE PT USE OF INHALER (11/12/15) NON-STRESS TEST (04/11/15) FIBRIN DEGRADATION QUANT (11/12/15) HILLIARD VAG DNA DIR PROBE (12/25/17) HEPATITIS B SURFACE AG IA (01/23/18) HEPATITIS C AB TEST (01/23/18) HIV-1 AG W/HIV-1 & HIV-2 AB (01/23/18) HYDRATE IV INFUSION ADD-ON (11/14/17) HYDRATION IV INFUSION INIT (11/18/17) INFLUENZA ASSAY W/OPTIC (02/23/17) MRI ABDOMEN W/O DYE (11/14/17) OB US < 14 WKS SINGLE FETUS (11/13/17) RBC ANTIBODY SCREEN (01/23/18) ROUTINE VENIPUNCTURE (12/28/17) RUBELLA ANTIBODY (01/23/18) SMEAR WET [place] SALINE/INK (05/11/14) STREP A AG IA (01/25/15) SYPHILIS TEST NON-TREP QUAL (01/23/18) SYPHILIS TEST NON-TREP QUANT (01/23/18) THER/PROPH/DIAG INJ IV PUSH (11/14/17) THER/PROPH/DIAG INJ SC/IM (02/03/17) TRANSVAGINAL US OBSTETRIC (10/07/17) TREPONEMA PALLIDUM (01/23/18) TRICHOMONAS VAGIN DIR PROBE (12/25/17) TX/PRO/DX INJ NEW DRUG ADDON (11/13/17) TX/PRO/DX INJ SAME DRUG CARDIAC CATH LAB RADIOLOGY TECHNOLOGIST (11/13/17) URINALYSIS AUTO W/O SCOPE (01/23/18) URINALYSIS AUTO W/SCOPE (11/18/17) URINE CULTURE/COLONY COUNT (01/23/18) URINE TEST (11/18/17) X-RAY EXAM OF ANKLE (09/24/14) X-RAY EXAM OF FOOT (01/12/14) (1) Abdominal pain SNOMED Code(s): 80655477 Code(s): R10.9 - UNSPECIFIED ABDOMINAL PAIN Current Visit: No Qualifiers: Abdominal location: right lower quadrant Qualified Code(s): R10.31 - Right lower quadrant pain (2) Vomiting SNOMED Code(s): 123988680 Code(s): R11.10 - VOMITING, UNSPECIFIED Current Visit: No Problem List Initiated/Reviewed/Updated: Yes My Orders Last 24 Hours: My Active Orders 06/04/18 Breakfast NPO [Nothing Per Oral Diet] [DIET] Plan: Her WBC is elevated which can be due to and stress due to vomiting. She has an elevated alkaline phosphatase, but this is normally elevated 3-4 times normal in . It may be slightly elevated due to slight dehydration , however she is making good UOP. She is mildly anemic and CO2 is low which I would expect as well in . Her physical exam is difficult to follow as she voluntarily guards despite no other clinical signs of pain (she walked around the room and moved in and out of bed without difficulty or peritoneal signs). She vomited and the vomitus appeared bilious with no signs of bright blood or coffee grounds. I check an H pylori which was negative. 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 To rule out a more serious or acute process, I ordered an MRI. She had a panic attack and the full series was not completed, but there were enough images taken that we can hopefully get a satisfactory read. The patient needs to be strictly NPO. This includes medications. Her po intake ( specifically clear liquids) maybe contributing to her frequent emesis. She should be placed on IV protonix 40mg daily. I am hesitant to perform an endoscopy on her at this time since there are no signs of a GI bleed and anesthesia carries a slight risk of pre-term labor. Will follow up on her MRI results. Should these be normal, I would watch her overnight. If the nausea persists and/or labs are same/unchanged may need to be transferred for further work up from GI and OB.
--- NOTE | 2018-06-03 18:51 | MR ---
INDICATION: Intractable vomiting and constipation. COMPARISON: None available. TECHNIQUE: An MRI of the abdomen pelvis was attempted without contrast however the patient was severely claustrophobic and could only tolerate a single sequence (coronal T2). FINDINGS: There is a 3rd trimester intrauterine . No free intraperitoneal fluid. No hydronephrosis. No intrahepatic biliary ductal dilatation. The appendix is not definitely seen. There is a tubular structure extending from the placenta and centrally, likely vasculature. There is a portion of the cord that extends around the back of the neck of the fetus although it does not appear to be extending 360 degrees around the neck. IMPRESSION: Markedly limited examination without evidence of hydronephrosis, intrahepatic biliary ductal dilatation, or bowel obstruction. Discussed with Dr. Multani. Dictated by Mil Francisco MD @ Jun 03 2018 6:32PM (Electronically Signed)
[2018-06-03] MEDS ORDERED: Pantoprazole 40 MG in Sodium Chloride 0.9% 10 ML IVPUSH SCH (19:00)
[2018-06-03] MEDS: Dextrose 5%-Lactated Ringers 1,000 ML IV SCH (20:47)
[2018-06-03] MEDS: Hydrocortisone Sodium Succinate 100 MG/2 ML SDV IVPUSH SCH (20:51)
[2018-06-03] MEDS ORDERED: Morphine 4 MG/ML Syringe IVPUSH ONE (21:27)
--- NOTE | 2018-06-03 22:12 | PCM.SN ---
- Free Text/Narrative Note: 27 yo @ 34w2d being managed for intractable vomiting. Patient seen at bedside in the AM, She is has recieved Phenergan , zofran , vistaril for vomiting. She states the vistaril and phenergan helps her. She had not had a bowel movement in 3 days as per patient. She has a hx of IBS. Internal Medicine consulted recommend repeat labs due to concerns about alkaline phosphatase level and also recommends a surgical consult. General surgery consulted recommend MRI of the abdomen , result - wnl, NPO , Protonix and reassessment in the Am .if no improvement may need to transfer to a another center with Psychic Reader. 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 Continue IV/IM Antiemetic regimen
[2018-06-04] MEDS: Ondansetron 4 MG/2 ML SDV IVPUSH PRN ×3 (01:17→17:25)
[2018-06-04] MEDS: Promethazine 25 MG/ML SDV IM PRN ×4 (01:17→21:37)
[2018-06-04] MEDS ORDERED: Acetaminophen 650 MG Supp RECTAL ONE (04:17)
[2018-06-04] MEDS ORDERED: Metoclopramide 10 MG/2 ML SDV ONE ×4 (04:44→21:27)
[2018-06-04] MEDS: Dextrose 5%-Lactated Ringers 1,000 ML IV SCH (04:50)
[2018-06-04] MEDS: Metoclopramide 10 MG/2 ML SDV IVPUSH PRN ×3 (04:50→21:38)
[2018-06-04 07:08] LABS: CHLORIDE,CL 108 mmol/L (98-107); SODIUM,NA 141 mmol/L (136-145)
[2018-06-04] MEDS ORDERED: Promethazine 25 MG/ML SDV ONE ×3 (07:33→21:27)
[2018-06-04] MEDS ORDERED: Dextrose 5%-0.225% NaCl w/KCl 1,000 ML IV SCH (08:30)
[2018-06-04] MEDS: Promethazine 25 MG Supp RECTAL SCH (08:30)
--- NOTE | 2018-06-04 08:52 | PCM.SN ---
- Free Text/Narrative Note: Patient seen at bedside , she states she felt better after receiving morphine last night and says she still has generalized body pain this morning. She requests pain control,. I gave her rectal tylenol.She has not have bilious vomiting since last night. she however has some retching Labs:WBC 15.2 , 11 AST:10 , ALT: 17 , ALP: 300 , Cr: 0.5 , K 3.2 EFM 140 , moderate variability accels , no decels Maurice; no contractions Exam; General: NAD Chest: CTA Abdomen: Gravid , no tenderness , no distension , normal bowel sounds Imp: Vomiting - improving , Generalized body pain Plan continue IVF continue antiemetic Trial of clear liquids Replacement of potassium Patient seen by Dr Multani , she does not think it is surgical and will sign off
[2018-06-04] MEDS ORDERED: Scopolamine 1.5 MG Transdermal Patch TRDERM PRN (10:28)
[2018-06-04] MEDS ORDERED: hydrOXYzine Pamoate 25 MG Cap ONE ×2 (10:34→17:17)
[2018-06-04] MEDS ORDERED: Hydrocortisone Sodium Succinate 100 MG/2 ML SDV ONE ×2 (10:53→21:28)
[2018-06-04] MEDS: Cyclobenzaprine 10 MG Tab PO PRN ×2 (10:59→18:36)
[2018-06-04] MEDS: Hydrocortisone Sodium Succinate 100 MG/2 ML SDV IVPUSH SCH ×2 (11:00→21:34)
--- NOTE | 2018-06-04 11:44 | PCM.PN ---
- General Info Date of Service: 06/04/18 Functional Status: Reports: Ambulating, Urinating, New Symptoms (mild cough today. ). Denies: Pain Controlled (complains of back pain, morphine helped last night.), Tolerating Diet (emesis after small amount of clear fluid, nausea was better when NPO. ) - Review of Systems General: Reports: Weakness, Fatigue HEENT: Reports: No Symptoms Pulmonary: Reports: Cough (non productive) Cardiovascular: Reports: No Symptoms Gastrointestinal: Reports: Nausea, Vomiting, Other (had bowel movement today. ) Genitourinary: Reports: Other (incontinence with emesis.) Musculoskeletal: Reports: Back Pain Skin: Reports: No Symptoms Neurological: Reports: No Symptoms Psychiatric: Reports: No Symptoms - Patient Data Weight - Most Recent: 79.379 kg Lab Results Last 24 Hours: Laboratory Results - last 24 hr 06/03/18 06/03/18 06/03/18 Range/Units 08:48 14:10 14:10 WBC 15.21 H (4.0-11.0) K/uL RBC 3.77 L (4.30-5.90) M/uL Hgb 11.3 L (12.0-16.0) g/dL Hct 33.4 L (36.0-46.0) % MCV 88.6 (80.0-98.0) fL MCH 30.0 (27.0-32.0) pg MCHC 33.8 (31.0-37.0) g/dL RDW Std Deviation 40.3 (28.0-62.0) fl RDW Coeff of Alana 13 (11.0-15.0) % Plt Count 233 (150-400) K/uL MPV 10.10 (7.40-12.00) fL Add Manual Diff YES Neutrophils % (Manual) 84 H (48.0-80.0) % Band Neutrophils % 1 % Lymphocytes % (Manual) 10 L (16.0-40.0) % Monocytes % (Manual) 4 (0.0-15.0) % Metamyelocytes % 1 % Nucleated RBC % 0.0 /100WBC Absolute Seg Neuts 12.8 H (1.4-5.7) Band Neutrophils # 0.2 Lymphocytes # (Manual) 1.5 (0.6-2.4) Monocytes # (Manual) 0.6 (0.0-0.8) Absolute Metamyelocyte 0.2 Nucleated RBCs # 0 K/uL INR APTT (18.6-31.3) SEC Lactate (0.20-2.00) mmol/L Sodium 138 (136-145) mmol/L Potassium 3.5 (3.5-5.1) mmol/L Chloride 106 (98-107) mmol/L Carbon Dioxide 16.4 L (21.0-32.0) mmol/L BUN 3 L (7.0-18.0) mg/dL Creatinine 0.5 L (0.6-1.0) mg/dL Est Cr Clr Drug Dosing 132.49 mL/min Estimated GFR (MDRD) > 60.0 ml/min Glucose 99 (74-106) mg/dL POC Glucose (60-110) mg/dL Calcium 8.5 (8.5-10.1) mg/dL Magnesium (1.8-2.4) mg/dL Total Bilirubin 0.6 (0.2-1.0) mg/dL AST 14 L (15-37) IU/L ALT 20 (14-63) IU/L Alkaline Phosphatase 374 H (46-116) U/L Total Protein 6.4 (6.4-8.2) g/dL Albumin 2.8 L (3.4-5.0) g/dL Globulin 3.6 (2.6-4.0) g/dL Albumin/Globulin Ratio 0.8 L (0.9-1.6) Amylase 87 (25-115) U/L Urine Opiates Screen (NEGATIVE) Ur Oxycodone Screen (NEGATIVE) Urine Methadone Screen (NEGATIVE) Ur Barbiturates Screen (NEGATIVE) Ur Phencyclidine Scrn (NEGATIVE) Ur Amphetamine Screen (NEGATIVE) U Methamphetamines Scrn (NEGATIVE) U Benzodiazepines Scrn (NEGATIVE) U Cocaine Metab Screen (NEGATIVE) U Marijuana (THC) Screen (NEGATIVE) H. pylori IgG Antibody (NEG) 06/03/18 06/03/18 06/03/18 Range/Units 14:10 14:10 14:31 WBC (4.0-11.0) K/uL RBC (4.30-5.90) M/uL Hgb (12.0-16.0) g/dL Hct (36.0-46.0) % MCV (80.0-98.0) fL MCH (27.0-32.0) pg MCHC (31.0-37.0) g/dL RDW Std Deviation (28.0-62.0) fl RDW Coeff of Alana (11.0-15.0) % Plt Count (150-400) K/uL MPV (7.40-12.00) fL Add Manual Diff Neutrophils % (Manual) (48.0-80.0) % Band Neutrophils % % Lymphocytes % (Manual) (16.0-40.0) % Monocytes % (Manual) (0.0-15.0) % Metamyelocytes % % Nucleated RBC % /100WBC Absolute Seg Neuts (1.4-5.7) Band Neutrophils # Lymphocytes # (Manual) (0.6-2.4) Monocytes # (Manual) (0.0-0.8) Absolute Metamyelocyte Nucleated RBCs # K/uL INR APTT (18.6-31.3) SEC Lactate 0.7 (0.20-2.00) mmol/L Sodium (136-145) mmol/L Potassium (3.5-5.1) mmol/L Chloride (98-107) mmol/L Carbon Dioxide (21.0-32.0) mmol/L BUN (7.0-18.0) mg/dL Creatinine (0.6-1.0) mg/dL Est Cr Clr Drug Dosing mL/min Estimated GFR (MDRD) ml/min Glucose (74-106) mg/dL POC Glucose (60-110) mg/dL Calcium (8.5-10.1) mg/dL Magnesium 1.7 L (1.8-2.4) mg/dL Total Bilirubin (0.2-1.0) mg/dL AST (15-37) IU/L ALT (14-63) IU/L Alkaline Phosphatase (46-116) U/L Total Protein (6.4-8.2) g/dL Albumin (3.4-5.0) g/dL Globulin (2.6-4.0) g/dL Albumin/Globulin Ratio (0.9-1.6) Amylase (25-115) U/L Urine Opiates Screen (NEGATIVE) Ur Oxycodone Screen (NEGATIVE) Urine Methadone Screen (NEGATIVE) Ur Barbiturates Screen (NEGATIVE) Ur Phencyclidine Scrn (NEGATIVE) Ur Amphetamine Screen (NEGATIVE) U Methamphetamines Scrn (NEGATIVE) U Benzodiazepines Scrn (NEGATIVE) U Cocaine Metab Screen (NEGATIVE) U Marijuana (THC) Screen (NEGATIVE) H. pylori IgG Antibody NEGATIVE (NEG) 06/03/18 06/04/18 06/04/18 Range/Units 21:25 05:09 05:45 WBC 11.79 H (4.0-11.0) K/uL RBC 3.36 L (4.30-5.90) M/uL Hgb 10.2 L (12.0-16.0) g/dL Hct 29.7 L (36.0-46.0) % MCV 88.4 (80.0-98.0) fL MCH 30.4 (27.0-32.0) pg MCHC 34.3 (31.0-37.0) g/dL RDW Std Deviation 40.5 (28.0-62.0) fl RDW Coeff of Alana 13 (11.0-15.0) % Plt Count 198 (150-400) K/uL MPV 10.10 (7.40-12.00) fL Add Manual Diff Neutrophils % (Manual) (48.0-80.0) % Band Neutrophils % % Lymphocytes % (Manual) (16.0-40.0) % Monocytes % (Manual) (0.0-15.0) % Metamyelocytes % % Nucleated RBC % 0.0 /100WBC Absolute Seg Neuts (1.4-5.7) Band Neutrophils # Lymphocytes # (Manual) (0.6-2.4) Monocytes # (Manual) (0.0-0.8) Absolute Metamyelocyte Nucleated RBCs # 0 K/uL INR APTT (18.6-31.3) SEC Lactate (0.20-2.00) mmol/L Sodium (136-145) mmol/L Potassium (3.5-5.1) mmol/L Chloride (98-107) mmol/L Carbon Dioxide (21.0-32.0) mmol/L BUN (7.0-18.0) mg/dL Creatinine (0.6-1.0) mg/dL Est Cr Clr Drug Dosing mL/min Estimated GFR (MDRD) ml/min Glucose (74-106) mg/dL POC Glucose 134 H (60-110) mg/dL Calcium (8.5-10.1) mg/dL Magnesium (1.8-2.4) mg/dL Total Bilirubin (0.2-1.0) mg/dL AST (15-37) IU/L ALT (14-63) IU/L Alkaline Phosphatase (46-116) U/L Total Protein (6.4-8.2) g/dL Albumin (3.4-5.0) g/dL Globulin (2.6-4.0) g/dL Albumin/Globulin Ratio (0.9-1.6) Amylase (25-115) U/L Urine Opiates Screen NEGATIVE (NEGATIVE) Ur Oxycodone Screen NEGATIVE (NEGATIVE) Urine Methadone Screen NEGATIVE (NEGATIVE) Ur Barbiturates Screen NEGATIVE (NEGATIVE) Ur Phencyclidine Scrn NEGATIVE (NEGATIVE) Ur Amphetamine Screen NEGATIVE (NEGATIVE) U Methamphetamines Scrn NEGATIVE (NEGATIVE) U Benzodiazepines Scrn NEGATIVE (NEGATIVE) U Cocaine Metab Screen NEGATIVE (NEGATIVE) U Marijuana (THC) Screen POSITIVE (NEGATIVE) H. pylori IgG Antibody (NEG) 06/04/18 06/04/18 Range/Units 05:45 05:45 WBC (4.0-11.0) K/uL RBC (4.30-5.90) M/uL Hgb (12.0-16.0) g/dL Hct (36.0-46.0) % MCV (80.0-98.0) fL MCH (27.0-32.0) pg MCHC (31.0-37.0) g/dL RDW Std Deviation (28.0-62.0) fl RDW Coeff of Alana (11.0-15.0) % Plt Count (150-400) K/uL MPV (7.40-12.00) fL Add Manual Diff Neutrophils % (Manual) (48.0-80.0) % Band Neutrophils % % Lymphocytes % (Manual) (16.0-40.0) % Monocytes % (Manual) (0.0-15.0) % Metamyelocytes % % Nucleated RBC % /100WBC Absolute Seg Neuts (1.4-5.7) Band Neutrophils # Lymphocytes # (Manual) (0.6-2.4) Monocytes # (Manual) (0.0-0.8) Absolute Metamyelocyte Nucleated RBCs # K/uL INR 0.97 APTT 25.2 (18.6-31.3) SEC Lactate (0.20-2.00) mmol/L Sodium 141 (136-145) mmol/L Potassium 3.2 L (3.5-5.1) mmol/L Chloride 108 H (98-107) mmol/L Carbon Dioxide 19.8 L (21.0-32.0) mmol/L BUN 3 L (7.0-18.0) mg/dL Creatinine 0.5 L (0.6-1.0) mg/dL Est Cr Clr Drug Dosing 132.49 mL/min Estimated GFR (MDRD) > 60.0 ml/min Glucose 132 H (74-106) mg/dL POC Glucose (60-110) mg/dL Calcium 8.1 L (8.5-10.1) mg/dL Magnesium (1.8-2.4) mg/dL Total Bilirubin 0.7 (0.2-1.0) mg/dL AST 10 L (15-37) IU/L ALT 17 (14-63) IU/L Alkaline Phosphatase 300 H (46-116) U/L Total Protein 5.5 L (6.4-8.2) g/dL Albumin 2.4 L (3.4-5.0) g/dL Globulin 3.1 (2.6-4.0) g/dL Albumin/Globulin Ratio 0.8 L (0.9-1.6) Amylase (25-115) U/L Urine Opiates Screen (NEGATIVE) Ur Oxycodone Screen (NEGATIVE) Urine Methadone Screen (NEGATIVE) Ur Barbiturates Screen (NEGATIVE) Ur Phencyclidine Scrn (NEGATIVE) Ur Amphetamine Screen (NEGATIVE) U Methamphetamines Scrn (NEGATIVE) U Benzodiazepines Scrn (NEGATIVE) U Cocaine Metab Screen (NEGATIVE) U Marijuana (THC) Screen (NEGATIVE) H. pylori IgG Antibody (NEG) Med Orders - Current: Current Medications Cyclobenzaprine HCl (Flexeril) 10 mg PO TID PRN PRN Reason: pain Last Admin: 06/04/18 10:59 Dose: 10 mg Hydrocortisone Sodium Succinate (Solu-Cortef) 100 mg IVPUSH Q12H [place]IT[place] Last Admin: 06/04/18 11:00 Dose: 100 mg Hydroxyzine Pamoate (Vistaril) 50 mg PO Q6H PRN PRN Reason: Nausea/Vomiting Last Admin: 06/03/18 14:54 Dose: 50 mg Pantoprazole Sodium 40 mg/ (Sodium Chloride) 10 mls @ 300 mls/hr IVPUSH Q24H PENDING SALE TO [facility] Last Admin: 06/03/18 20:50 Dose: 300 mls/hr Dextrose/Lactated Ringer's (Dextrose 5%-Lactated Ringers) 1,000 mls @ 125 mls/ hr IV ASDIRECTED PENDING SALE TO [facility] Last Admin: 06/04/18 04:50 Dose: 125 mls/hr Potassium Chloride/Dextrose/Sod Cl (D5 1/4 Ns With 20 Meq Kcl) 1,000 mls @ 75 mls/hr IV ASDIRECTED PENDING SALE TO [facility] Last Admin: 06/04/18 09:07 Dose: 75 mls/hr Acetaminophen 1,000 mg/ Premix 100 mls @ 400 mls/hr IV Q6H PRN PRN Reason: Pain Metoclopramide HCl (Reglan) 10 mg IVPUSH Q8H PRN PRN Reason: Nausea/Vomiting Last Admin: 06/04/18 04:50 Dose: 10 mg Ondansetron HCl (Zofran) 4 mg IVPUSH Q4H PRN PRN Reason: Nausea/Vomiting Last Admin: 06/04/18 01:17 Dose: 4 mg Promethazine HCl (Phenadoz) 25 mg RECTAL Q6H PENDING SALE TO [facility] Last Admin: 06/04/18 08:30 Dose: Not Given Promethazine HCl (Phenergan) 25 mg IM Q6H PRN PRN Reason: Nausea/Vomiting Last Admin: 06/04/18 07:40 Dose: 25 mg Scopolamine (Transderm-Scop) 1.5 mg TRDERM Q72H PRN PRN Reason: Nausea/Vomiting Last Admin: 06/04/18 10:46 Dose: 1.5 mg Sodium Chloride (Saline Flush) 10 ml FLUSH ASDIRECTED PRN PRN Reason: Keep Vein Open Sodium Chloride (Saline Flush) 2.5 ml FLUSH ASDIRECTED PRN PRN Reason: Keep Vein Open Sodium Chloride (Normal Saline) 10 ml IV ASDIRECTED PRN PRN Reason: IV Use Discontinued Medications Acetaminophen (Tylenol) 650 mg RECTAL NOW ONE Stop: 06/04/18 04:18 Last Admin: 06/04/18 04:52 Dose: 650 mg Citric Acid/Sodium Citrate (Bicitra Solution) 30 ml PO ONETIME ONE Stop: 06/02/18 20:02 Last Admin: 06/02/18 20:13 Dose: 30 ml Hydrocortisone Sodium Succinate (Solu-Cortef) Confirm Administered Dose 100 mg .ROUTE .STK-MED ONE Stop: 06/04/18 10:54 Hydroxyzine Pamoate (Vistaril) 50 mg PO ONETIME ONE Stop: 06/02/18 15:58 Last Admin: 06/02/18 17:21 Dose: 50 mg Hydroxyzine Pamoate (Vistaril) Confirm Administered Dose 25 mg .ROUTE .STK-MED ONE Stop: 06/04/18 10:35 Last Admin: 06/04/18 10:46 Dose: 25 mg Lactated Ringer's (Ringers, Lactated) 1,000 mls @ 999 mls/min IV .BOLUS ONE Stop: 06/02/18 10:52 Last Admin: 06/02/18 11:00 Dose: 999 mls/min Lactated Ringer's (Ringers, Lactated) 1,000 mls @ 250 mls/hr IV ASDIRECTED PENDING SALE TO [facility] Last Admin: 06/03/18 14:46 Dose: 250 mls/hr Metoclopramide HCl (Reglan) Confirm Administered Dose 10 mg .ROUTE .STK-MED ONE Stop: 06/04/18 04:45 Last Admin: 06/04/18 04:59 Dose: Not Given Morphine Sulfate (Morphine) 4 mg IVPUSH ONETIME ONE Stop: 06/03/18 21:28 Last Admin: 06/03/18 22:12 Dose: 4 mg Ondansetron HCl (Zofran) 4 mg IVPUSH Q4H PRN PRN Reason: Nausea/Vomiting Last Admin: 06/02/18 11:03 Dose: 4 mg Ondansetron HCl (Zofran) 8 mg IVPUSH ONETIME ONE Stop: 06/02/18 13:54 Last Admin: 06/02/18 14:03 Dose: 8 mg Ondansetron HCl (Zofran) 4 mg IVPUSH Q6H PENDING SALE TO [facility] Last Admin: 06/03/18 14:29 Dose: 4 mg Promethazine HCl (Phenadoz) 25 mg RECTAL ONETIME ONE Stop: 06/02/18 11:48 Promethazine HCl (Phenadoz) 25 mg RECTAL ONETIME ONE Stop: 06/02/18 12:16 Last Admin: 06/02/18 12:19 Dose: 25 mg Promethazine HCl (Phenergan) Confirm Administered Dose 25 mg .ROUTE .STK-MED ONE Stop: 06/04/18 07:34 - Exam General: Alert, Oriented HEENT: Pupils Equal, Pupils Reactive, EOMI, Mucous Membr. Moist/[place] Neck: Supple Lungs: Normal Respiratory Effort, Wheezing (few). No: Crackles, Rales, Rhonchi Cardiovascular: Regular Rate, Regular Rhythm GI/Abdominal Exam: Normal Bowel Sounds, Soft, Non-Tender, No Organomegaly, No Distention, No Abnormal Bruit, No Mass, Pelvis Stable, Other (fundus nontender, FHT reactive, no contractions. ) Extremities: Normal Inspection, Normal Range of Motion, Non-Tender, No Pedal Edema, Normal Capillary Refill - Problem List & Annotations (1) Nausea and vomiting during SNOMED Code(s): 08128696, [id number] Code(s): O21.9 - VOMITING OF , UNSPECIFIED Status: Acute Current Visit: Yes - Problem List Review Problem List Initiated/Reviewed/Updated: Yes - My Orders Last 24 Hours: My Active Orders 06/04/18 10:15 Cyclobenzaprine [Flexeril] 10 mg PO TID PRN 06/04/18 10:28 Scopolamine [Transderm-Scop] 1.5 mg TRDERM Q72H PRN 06/04/18 10:48 Acetaminophen [Ofirmev] 1,000 mg Premix Bag 1 bag IV Q6H 06/04/18 15:00 BMP [BASIC METABOLIC PANEL,BMP] [CHEM] Routine - Assessment Assessment:: 34 weeks, history of hyperemesis with large weight loss in the first trimester, new, sudden onset nausea vomiting 3 days ago, other individuals in the community have similar symptoms therefor this seems to be viral gatroenteritis , with exacerbation of hyperemesis gravidarum. She has had complete surgical evaluation including MRI which shows no evidence of appendicitis, pancreatitis, bowel obstruction or inflammatory bowel disease. Symptoms over night were somewhat improved after hydrocortisone, morphine and Tylenol, NPO status. Vomiting is now recurrent with any oral fluids. - Plan Plan:: Reassured her alkaline phosphatase level is normal in , mild hypokalemia, correcting by IV. Will start scopalomine, vistaril, may use flexeril for back pain, IV Tylenol for pain, continue with steroids, if improved and tolerates po, can start oral steroid taper if improved.
[2018-06-04] MEDS ORDERED: Ondansetron 4 MG/2 ML SDV ONE ×2 (12:36→17:17)
[2018-06-04] MEDS: Acetaminophen 1,000 MG in Premix Bag 1 BAG IV PRN ×2 (13:09→21:40)
--- NOTE | 2018-06-04 13:49 | PCM.CONS ---
H&P History of Present Illness - General Date of Service: 06/04/18 Admit Problem/Dx: Admission Diagnosis/Problem Admission Diagnosis/Problem - planned Source of Information: Patient History Limitations: Reports: No Limitations - History of Present Illness Initial Comments - Free Text/Narative: Patient had episodes of emesis last night. She had one dose of morphine which improved her symptoms and she slept well. This morning she is complaining of pain in her lower abdomen and back. Her vitals were stable overnight. Labs were all improved this morning. 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: , Other (See Below) Other OB/BYN History: stated having ovarian cyst Musculoskeletal History: Reports: Fibromyalgia Neurological History: Reports: Seizure Psychiatric History: Reports: Anxiety, Bipolar, Depression Endocrine/Metabolic History: Reports: None Hematologic History: Reports: None Immunologic History: Reports: None Oncologic (Cancer) History: Reports: None Dermatologic History: Reports: None - Infectious Disease History Infectious Disease History: Reports: None Other Infectious Disease History: been treated for Hepatitis C - Past Surgical History Head Surgeries/Procedures: Reports: None GI Surgical History: Reports: Cholecystectomy Female Surgical History: Reports: D&C Musculoskeletal Surgical History: Reports: None Social & Family History - Family History Family Medical History: Noncontributory - Caffeine Use Caffeine Use: Reports: None Caffeine Use Comment: 1cup/day H&P Review of Systems - Review of Systems: Review Of Systems: ROS reveals no pertinent complaints other than HPI. Exam - Exam Exam: See Below - Vital Signs Weight: 79.379 kg - Exam General: Alert, Oriented, Cooperative Lungs: Normal Respiratory Effort Cardiovascular: Regular Rate GI/Abdominal Exam: Soft, Non-Tender, No Distention, No Mass - Patient Data Lab Results Last 24 hrs: Laboratory Results - last 24 hr 06/03/18 06/03/18 06/03/18 Range/Units 14:10 14:10 14:10 WBC 15.21 H (4.0-11.0) K/uL RBC 3.77 L (4.30-5.90) M/uL Hgb 11.3 L (12.0-16.0) g/dL Hct 33.4 L (36.0-46.0) % MCV 88.6 (80.0-98.0) fL MCH 30.0 (27.0-32.0) pg MCHC 33.8 (31.0-37.0) g/dL RDW Std Deviation 40.3 (28.0-62.0) fl RDW Coeff of Alana 13 (11.0-15.0) % Plt Count 233 (150-400) K/uL MPV 10.10 (7.40-12.00) fL Add Manual Diff YES Neutrophils % (Manual) 84 H (48.0-80.0) % Band Neutrophils % 1 % Lymphocytes % (Manual) 10 L (16.0-40.0) % Monocytes % (Manual) 4 (0.0-15.0) % Metamyelocytes % 1 % Nucleated RBC % 0.0 /100WBC Absolute Seg Neuts 12.8 H (1.4-5.7) Band Neutrophils # 0.2 Lymphocytes # (Manual) 1.5 (0.6-2.4) Monocytes # (Manual) 0.6 (0.0-0.8) Absolute Metamyelocyte 0.2 Nucleated RBCs # 0 K/uL INR APTT (18.6-31.3) SEC Lactate 0.7 (0.20-2.00) mmol/L Sodium 138 (136-145) mmol/L Potassium 3.5 (3.5-5.1) mmol/L Chloride 106 (98-107) mmol/L Carbon Dioxide 16.4 L (21.0-32.0) mmol/L BUN 3 L (7.0-18.0) mg/dL Creatinine 0.5 L (0.6-1.0) mg/dL Est Cr Clr Drug Dosing 132.49 mL/min Estimated GFR (MDRD) > 60.0 ml/min Glucose 99 (74-106) mg/dL POC Glucose (60-110) mg/dL Calcium 8.5 (8.5-10.1) mg/dL Magnesium (1.8-2.4) mg/dL Total Bilirubin 0.6 (0.2-1.0) mg/dL AST 14 L (15-37) IU/L ALT 20 (14-63) IU/L Alkaline Phosphatase 374 H (46-116) U/L Total Protein 6.4 (6.4-8.2) g/dL Albumin 2.8 L (3.4-5.0) g/dL Globulin 3.6 (2.6-4.0) g/dL Albumin/Globulin Ratio 0.8 L (0.9-1.6) Urine Opiates Screen (NEGATIVE) Ur Oxycodone Screen (NEGATIVE) Urine Methadone Screen (NEGATIVE) Ur Barbiturates Screen (NEGATIVE) Ur Phencyclidine Scrn (NEGATIVE) Ur Amphetamine Screen (NEGATIVE) U Methamphetamines Scrn (NEGATIVE) U Benzodiazepines Scrn (NEGATIVE) U Cocaine Metab Screen (NEGATIVE) U Marijuana (THC) Screen (NEGATIVE) H. pylori IgG Antibody (NEG) 06/03/18 06/03/18 06/03/18 Range/Units 14:10 14:31 21:25 WBC (4.0-11.0) K/uL RBC (4.30-5.90) M/uL Hgb (12.0-16.0) g/dL Hct (36.0-46.0) % MCV (80.0-98.0) fL MCH (27.0-32.0) pg MCHC (31.0-37.0) g/dL RDW Std Deviation (28.0-62.0) fl RDW Coeff of Alana (11.0-15.0) % Plt Count (150-400) K/uL MPV (7.40-12.00) fL Add Manual Diff Neutrophils % (Manual) (48.0-80.0) % Band Neutrophils % % Lymphocytes % (Manual) (16.0-40.0) % Monocytes % (Manual) (0.0-15.0) % Metamyelocytes % % Nucleated RBC % /100WBC Absolute Seg Neuts (1.4-5.7) Band Neutrophils # Lymphocytes # (Manual) (0.6-2.4) Monocytes # (Manual) (0.0-0.8) Absolute Metamyelocyte Nucleated RBCs # K/uL INR APTT (18.6-31.3) SEC Lactate (0.20-2.00) mmol/L Sodium (136-145) mmol/L Potassium (3.5-5.1) mmol/L Chloride (98-107) mmol/L Carbon Dioxide (21.0-32.0) mmol/L BUN (7.0-18.0) mg/dL Creatinine (0.6-1.0) mg/dL Est Cr Clr Drug Dosing mL/min Estimated GFR (MDRD) ml/min Glucose (74-106) mg/dL POC Glucose (60-110) mg/dL Calcium (8.5-10.1) mg/dL Magnesium 1.7 L (1.8-2.4) mg/dL Total Bilirubin (0.2-1.0) mg/dL AST (15-37) IU/L ALT (14-63) IU/L Alkaline Phosphatase (46-116) U/L Total Protein (6.4-8.2) g/dL Albumin (3.4-5.0) g/dL Globulin (2.6-4.0) g/dL Albumin/Globulin Ratio (0.9-1.6) Urine Opiates Screen NEGATIVE (NEGATIVE) Ur Oxycodone Screen NEGATIVE (NEGATIVE) Urine Methadone Screen NEGATIVE (NEGATIVE) Ur Barbiturates Screen NEGATIVE (NEGATIVE) Ur Phencyclidine Scrn NEGATIVE (NEGATIVE) Ur Amphetamine Screen NEGATIVE (NEGATIVE) U Methamphetamines Scrn NEGATIVE (NEGATIVE) U Benzodiazepines Scrn NEGATIVE (NEGATIVE) U Cocaine Metab Screen NEGATIVE (NEGATIVE) U Marijuana (THC) Screen POSITIVE (NEGATIVE) H. pylori IgG Antibody NEGATIVE (NEG) 06/04/18 06/04/18 06/04/18 Range/Units 05:09 05:45 05:45 WBC 11.79 H (4.0-11.0) K/uL RBC 3.36 L (4.30-5.90) M/uL Hgb 10.2 L (12.0-16.0) g/dL Hct 29.7 L (36.0-46.0) % MCV 88.4 (80.0-98.0) fL MCH 30.4 (27.0-32.0) pg MCHC 34.3 (31.0-37.0) g/dL RDW Std Deviation 40.5 (28.0-62.0) fl RDW Coeff of Alana 13 (11.0-15.0) % Plt Count 198 (150-400) K/uL MPV 10.10 (7.40-12.00) fL Add Manual Diff Neutrophils % (Manual) (48.0-80.0) % Band Neutrophils % % Lymphocytes % (Manual) (16.0-40.0) % Monocytes % (Manual) (0.0-15.0) % Metamyelocytes % % Nucleated RBC % 0.0 /100WBC Absolute Seg Neuts (1.4-5.7) Band Neutrophils # Lymphocytes # (Manual) (0.6-2.4) Monocytes # (Manual) (0.0-0.8) Absolute Metamyelocyte Nucleated RBCs # 0 K/uL INR APTT (18.6-31.3) SEC Lactate (0.20-2.00) mmol/L Sodium 141 (136-145) mmol/L Potassium 3.2 L (3.5-5.1) mmol/L Chloride 108 H (98-107) mmol/L Carbon Dioxide 19.8 L (21.0-32.0) mmol/L BUN 3 L (7.0-18.0) mg/dL Creatinine 0.5 L (0.6-1.0) mg/dL Est Cr Clr Drug Dosing 132.49 mL/min Estimated GFR (MDRD) > 60.0 ml/min Glucose 132 H (74-106) mg/dL POC Glucose 134 H (60-110) mg/dL Calcium 8.1 L (8.5-10.1) mg/dL Magnesium (1.8-2.4) mg/dL Total Bilirubin 0.7 (0.2-1.0) mg/dL AST 10 L (15-37) IU/L ALT 17 (14-63) IU/L Alkaline Phosphatase 300 H (46-116) U/L Total Protein 5.5 L (6.4-8.2) g/dL Albumin 2.4 L (3.4-5.0) g/dL Globulin 3.1 (2.6-4.0) g/dL Albumin/Globulin Ratio 0.8 L (0.9-1.6) Urine Opiates Screen (NEGATIVE) Ur Oxycodone Screen (NEGATIVE) Urine Methadone Screen (NEGATIVE) Ur Barbiturates Screen (NEGATIVE) Ur Phencyclidine Scrn (NEGATIVE) Ur Amphetamine Screen (NEGATIVE) U Methamphetamines Scrn (NEGATIVE) U Benzodiazepines Scrn (NEGATIVE) U Cocaine Metab Screen (NEGATIVE) U Marijuana (THC) Screen (NEGATIVE) H. pylori IgG Antibody (NEG) 06/04/18 Range/Units 05:45 WBC (4.0-11.0) K/uL RBC (4.30-5.90) M/uL Hgb (12.0-16.0) g/dL Hct (36.0-46.0) % MCV (80.0-98.0) fL MCH (27.0-32.0) pg MCHC (31.0-37.0) g/dL RDW Std Deviation (28.0-62.0) fl RDW Coeff of Alana (11.0-15.0) % Plt Count (150-400) K/uL MPV (7.40-12.00) fL Add Manual Diff Neutrophils % (Manual) (48.0-80.0) % Band Neutrophils % % Lymphocytes % (Manual) (16.0-40.0) % Monocytes % (Manual) (0.0-15.0) % Metamyelocytes % % Nucleated RBC % /100WBC Absolute Seg Neuts (1.4-5.7) Band Neutrophils # Lymphocytes # (Manual) (0.6-2.4) Monocytes # (Manual) (0.0-0.8) Absolute Metamyelocyte Nucleated RBCs # K/uL INR 0.97 APTT 25.2 (18.6-31.3) SEC Lactate (0.20-2.00) mmol/L Sodium (136-145) mmol/L Potassium (3.5-5.1) mmol/L Chloride (98-107) mmol/L Carbon Dioxide (21.0-32.0) mmol/L BUN (7.0-18.0) mg/dL Creatinine (0.6-1.0) mg/dL Est Cr Clr Drug Dosing mL/min Estimated GFR (MDRD) ml/min Glucose (74-106) mg/dL POC Glucose (60-110) mg/dL Calcium (8.5-10.1) mg/dL Magnesium (1.8-2.4) mg/dL Total Bilirubin (0.2-1.0) mg/dL AST (15-37) IU/L ALT (14-63) IU/L Alkaline Phosphatase (46-116) U/L Total Protein (6.4-8.2) g/dL Albumin (3.4-5.0) g/dL Globulin (2.6-4.0) g/dL Albumin/Globulin Ratio (0.9-1.6) Urine Opiates Screen (NEGATIVE) Ur Oxycodone Screen (NEGATIVE) Urine Methadone Screen (NEGATIVE) Ur Barbiturates Screen (NEGATIVE) Ur Phencyclidine Scrn (NEGATIVE) Ur Amphetamine Screen (NEGATIVE) U Methamphetamines Scrn (NEGATIVE) U Benzodiazepines Scrn (NEGATIVE) U Cocaine Metab Screen (NEGATIVE) U Marijuana (THC) Screen (NEGATIVE) H. pylori IgG Antibody (NEG) Result Diagrams: 06/04/18 05:45 06/04/18 05:45 Consult PN Assessment/Plan Procedures: Procedures ASSAY OF LIPASE (11/14/17) ASSAY OF MAGNESIUM (04/22/17) ASSAY OF TROPONIN QUANT (11/12/15) ASSAY THYROID STIM HORMONE (04/22/17) BLOOD TYPING SEROLOGIC ABO (01/23/18) BLOOD TYPING SEROLOGIC RH(D) (01/23/18) CHANDRAKANT DNA DIR PROBE (12/25/17) CHEST X-RAY 2VW FRONTAL&LATL (11/12/15) CHORIONIC GONADOTROPIN TEST (11/15/17) COMPLETE CBC AUTOMATED (01/23/18) COMPLETE CBC W/AUTO DIFF WBC (11/18/17) COMPREHEN METABOLIC PANEL (11/18/17) CT ABD & PELVIS W/O CONTRAST (05/11/14) CULTURE SCREEN ONLY (01/25/15) DRUG TEST PRSMV DIR OPT OBS (01/23/18) ECHO EXAM OF ABDOMEN (11/13/17) ELECTROCARDIOGRAM TRACING (04/22/17) EMERGENCY DEPT VISIT (11/18/17) EMERGENCY DEPT VISIT (04/22/17) EMERGENCY DEPT VISIT (02/03/17) EMERGENCY DEPT VISIT (09/10/16) EMERGENCY DEPT VISIT (11/12/15) EMERGENCY DEPT VISIT (09/24/14) EMERGENCY DEPT VISIT (05/11/14) EVAL AMNIOTIC FLUID PROTEIN (04/06/15) EVALUATE PT USE OF INHALER (11/12/15) NON-STRESS TEST (04/11/15) FIBRIN DEGRADATION QUANT (11/12/15) HILLIARD VAG DNA DIR PROBE (12/25/17) HEPATITIS B SURFACE AG IA (01/23/18) HEPATITIS C AB TEST (01/23/18) HIV-1 AG W/HIV-1 & HIV-2 AB (01/23/18) HYDRATE IV INFUSION ADD-ON (11/14/17) HYDRATION IV INFUSION INIT (11/18/17) INFLUENZA ASSAY W/OPTIC (02/23/17) MRI ABDOMEN W/O DYE (11/14/17) OB US < 14 WKS SINGLE FETUS (11/13/17) RBC ANTIBODY SCREEN (01/23/18) ROUTINE VENIPUNCTURE (12/28/17) RUBELLA ANTIBODY (01/23/18) SMEAR WET MOUNT SALINE/INK (05/11/14) STREP A AG IA (01/25/15) SYPHILIS TEST NON-TREP QUAL (01/23/18) SYPHILIS TEST NON-TREP QUANT (01/23/18) THER/PROPH/DIAG INJ IV PUSH (11/14/17) THER/PROPH/DIAG INJ SC/IM (02/03/17) TRANSVAGINAL US OBSTETRIC (10/07/17) TREPONEMA PALLIDUM (01/23/18) TRICHOMONAS VAGIN DIR PROBE (12/25/17) TX/PRO/DX INJ NEW DRUG ADDON (11/13/17) TX/PRO/DX INJ SAME DRUG BRAKE REPAIRER BUS (11/13/17) URINALYSIS AUTO W/O SCOPE (01/23/18) URINALYSIS AUTO W/SCOPE (11/18/17) URINE CULTURE/COLONY COUNT (01/23/18) URINE TEST (11/18/17) X-RAY EXAM OF ANKLE (09/24/14) X-RAY EXAM OF FOOT (01/12/14) (1) Abdominal pain SNOMED Code(s): 31793606 Code(s): R10.9 - UNSPECIFIED ABDOMINAL PAIN Current Visit: No Qualifiers: Abdominal location: right lower quadrant Qualified Code(s): R10.31 - Right lower quadrant pain (2) Vomiting SNOMED Code(s): 378325554 Code(s): R11.10 - VOMITING, UNSPECIFIED Current Visit: No Problem List Initiated/Reviewed/Updated: Yes My Orders Last 24 Hours: My Active Orders 06/03/18 19:00 Pantoprazole [ProTONIX IV] 40 mg Sodium Chloride 0.9% [Normal Saline] 10 ml IVPUSH Q24H Plan: Patient is a 27 year old female with nausea vomiting and abdominal pain. Her physical exam was benign this morning. Her vitals were stable. Her labs are improving. At this time I do not feel she has an acute surgical process. I will sign off at this time. Call with any questions or concerns.
[2018-06-04 15:31] LABS: CHLORIDE,CL 104 mmol/L (98-107); SODIUM,NA 136 mmol/L (136-145)
[2018-06-04] MEDS: hydrOXYzine Pamoate 25 MG Cap PO PRN (17:24)
[2018-06-04] MEDS ORDERED: Morphine 4 MG/ML Syringe IVPUSH ONE (18:47)
[2018-06-04] MEDS ORDERED: Morphine 2 MG/ML Syringe ONE (18:52)
[2018-06-05] MEDS ORDERED: hydrOXYzine Pamoate 25 MG Cap ONE (00:25)
[2018-06-05] MEDS: hydrOXYzine Pamoate 25 MG Cap PO PRN (00:28)
[2018-06-05] MEDS: Cyclobenzaprine 10 MG Tab PO PRN (02:56)
[2018-06-05] MEDS ORDERED: Promethazine 25 MG/ML SDV ONE (03:34)
[2018-06-05] MEDS: Acetaminophen 1,000 MG in Premix Bag 1 BAG IV PRN (03:48)
[2018-06-05] MEDS ORDERED: Hydrocortisone Sodium Succinate 100 MG/2 ML SDV ONE ×2 (08:42→21:15)
--- NOTE | 2018-06-05 08:42 | PCM.PN ---
- General Info Date of Service: 06/05/18 Functional Status: Reports: Ambulating, Urinating. Denies: Pain Controlled ( reports back pain), Tolerating Diet (tolerating clears, nurse reports no emesis through the night, patient reports recurrent emesis, none observed) - Review of Systems General: Reports: No Symptoms HEENT: Reports: No Symptoms Pulmonary: Reports: No Symptoms Cardiovascular: Reports: No Symptoms Gastrointestinal: Reports: Nausea, Vomiting Genitourinary: Reports: No Symptoms Musculoskeletal: Reports: Back Pain Skin: Reports: No Symptoms Neurological: Reports: No Symptoms Psychiatric: Reports: No Symptoms - Patient Data Weight - Most Recent: 77.111 kg Lab Results Last 24 Hours: Laboratory Results - last 24 hr 06/04/18 06/04/18 Range/Units 14:50 21:52 Sodium 136 (136-145) mmol/L Potassium 3.3 L (3.5-5.1) mmol/L Chloride 104 (98-107) mmol/L Carbon Dioxide 21.9 (21.0-32.0) mmol/L BUN 3 L (7.0-18.0) mg/dL Creatinine 0.5 L (0.6-1.0) mg/dL Est Cr Clr Drug Dosing 132.49 mL/min Estimated GFR (MDRD) > 60.0 ml/min Glucose 145 H (74-106) mg/dL POC Glucose 135 H (60-110) mg/dL Calcium 8.5 (8.5-10.1) mg/dL Med Orders - Current: Current Medications Cyclobenzaprine HCl (Flexeril) 10 mg PO TID PRN PRN Reason: pain Last Admin: 06/05/18 02:56 Dose: 10 mg Hydrocortisone Sodium Succinate (Solu-Cortef) 100 mg IVPUSH Q12H [facility] Last Admin: 06/04/18 21:34 Dose: 100 mg Hydroxyzine Pamoate (Vistaril) 50 mg PO Q6H PRN PRN Reason: Nausea/Vomiting Last Admin: 06/05/18 00:28 Dose: 50 mg Pantoprazole Sodium 40 mg/ (Sodium Chloride) 10 mls @ 300 mls/hr IVPUSH Q24H [facility] Last Admin: 06/03/18 20:50 Dose: 300 mls/hr Dextrose/Lactated Ringer's (Dextrose 5%-Lactated Ringers) 1,000 mls @ 125 mls/ hr IV ASDIRECTED [facility] Last Admin: 06/04/18 04:50 Dose: 125 mls/hr Potassium Chloride/Dextrose/Sod Cl (D5 1/4 Ns With 20 Meq Kcl) 1,000 mls @ 75 mls/hr IV ASDIRECTED [facility] Last Admin: 06/04/18 09:07 Dose: 75 mls/hr Acetaminophen 1,000 mg/ Premix 100 mls @ 400 mls/hr IV Q6H PRN PRN Reason: Pain Last Admin: 06/05/18 03:48 Dose: 400 mls/hr Metoclopramide HCl (Reglan) 10 mg IVPUSH Q8H PRN PRN Reason: Nausea/Vomiting Last Admin: 06/04/18 21:38 Dose: 10 mg Ondansetron HCl (Zofran) 4 mg IVPUSH Q4H PRN PRN Reason: Nausea/Vomiting Last Admin: 06/04/18 17:25 Dose: 4 mg Promethazine HCl (Phenadoz) 25 mg RECTAL Q6H [facility] Last Admin: 06/04/18 08:30 Dose: Not Given Promethazine HCl (Phenergan) 25 mg IM Q6H PRN PRN Reason: Nausea/Vomiting Last Admin: 06/04/18 21:37 Dose: 25 mg Scopolamine (Transderm-Scop) 1.5 mg TRDERM Q72H PRN PRN Reason: Nausea/Vomiting Last Admin: 06/04/18 10:46 Dose: 1.5 mg Sodium Chloride (Saline Flush) 10 ml FLUSH ASDIRECTED PRN PRN Reason: Keep Vein Open Sodium Chloride (Saline Flush) 2.5 ml FLUSH ASDIRECTED PRN PRN Reason: Keep Vein Open Sodium Chloride (Normal Saline) 10 ml IV ASDIRECTED PRN PRN Reason: IV Use Discontinued Medications Acetaminophen (Tylenol) 650 mg RECTAL NOW ONE Stop: 06/04/18 04:18 Last Admin: 06/04/18 04:52 Dose: 650 mg Citric Acid/Sodium Citrate (Bicitra Solution) 30 ml PO ONETIME ONE Stop: 06/02/18 20:02 Last Admin: 06/02/18 20:13 Dose: 30 ml Hydrocortisone Sodium Succinate (Solu-Cortef) Confirm Administered Dose 100 mg .ROUTE .STK-MED ONE Stop: 06/04/18 10:54 Last Admin: 06/04/18 21:35 Dose: Not Given Hydrocortisone Sodium Succinate (Solu-Cortef) Confirm Administered Dose 100 mg .ROUTE .STK-MED ONE Stop: 06/04/18 21:29 Last Admin: 06/04/18 21:28 Dose: Not Given Hydroxyzine Pamoate (Vistaril) 50 mg PO ONETIME ONE Stop: 06/02/18 15:58 Last Admin: 06/02/18 17:21 Dose: 50 mg Hydroxyzine Pamoate (Vistaril) Confirm Administered Dose 25 mg .ROUTE .STK-MED ONE Stop: 06/04/18 10:35 Last Admin: 06/04/18 10:46 Dose: 25 mg Hydroxyzine Pamoate (Vistaril) Confirm Administered Dose 50 mg .ROUTE .STK-MED ONE Stop: 06/04/18 17:18 Hydroxyzine Pamoate (Vistaril) Confirm Administered Dose 50 mg .ROUTE .STK-MED ONE Stop: 06/05/18 00:26 Last Admin: 06/05/18 00:32 Dose: Not Given Lactated Ringer's (Ringers, Lactated) 1,000 mls @ 999 mls/min IV .BOLUS ONE Stop: 06/02/18 10:52 Last Admin: 06/02/18 11:00 Dose: 999 mls/min Lactated Ringer's (Ringers, Lactated) 1,000 mls @ 250 mls/hr IV ASDIRECTED [facility] Last Admin: 06/03/18 14:46 Dose: 250 mls/hr Metoclopramide HCl (Reglan) Confirm Administered Dose 10 mg .ROUTE .STK-MED ONE Stop: 06/04/18 04:45 Last Admin: 06/04/18 04:59 Dose: Not Given Metoclopramide HCl (Reglan) Confirm Administered Dose 10 mg .ROUTE .STK-MED ONE Stop: 06/04/18 12:36 Metoclopramide HCl (Reglan) Confirm Administered Dose 10 mg .ROUTE .STK-MED ONE Stop: 06/04/18 18:53 Metoclopramide HCl (Reglan) Confirm Administered Dose 10 mg .ROUTE .STK-MED ONE Stop: 06/04/18 21:28 Last Admin: 06/04/18 21:47 Dose: Not Given Morphine Sulfate (Morphine) 4 mg IVPUSH ONETIME ONE Stop: 06/03/18 21:28 Last Admin: 06/03/18 22:12 Dose: 4 mg Morphine Sulfate (Morphine) 4 mg IVPUSH ONETIME ONE Stop: 06/04/18 18:48 Morphine Sulfate (Morphine) Confirm Administered Dose 4 mg .ROUTE .STK-MED ONE Stop: 06/04/18 18:53 Last Admin: 06/04/18 18:56 Dose: 4 mg Ondansetron HCl (Zofran) 4 mg IVPUSH Q4H PRN PRN Reason: Nausea/Vomiting Last Admin: 06/02/18 11:03 Dose: 4 mg Ondansetron HCl (Zofran) 8 mg IVPUSH ONETIME ONE Stop: 06/02/18 13:54 Last Admin: 06/02/18 14:03 Dose: 8 mg Ondansetron HCl (Zofran) 4 mg IVPUSH Q6H [facility] Last Admin: 06/03/18 14:29 Dose: 4 mg Ondansetron HCl (Zofran) Confirm Administered Dose 4 mg .ROUTE .STK-MED ONE Stop: 06/04/18 12:37 Ondansetron HCl (Zofran) Confirm Administered Dose 4 mg .ROUTE .STK-MED ONE Stop: 06/04/18 17:18 Promethazine HCl (Phenadoz) 25 mg RECTAL ONETIME ONE Stop: 06/02/18 11:48 Promethazine HCl (Phenadoz) 25 mg RECTAL ONETIME ONE Stop: 06/02/18 12:16 Last Admin: 06/02/18 12:19 Dose: 25 mg Promethazine HCl (Phenergan) Confirm Administered Dose 25 mg .ROUTE .STK-MED ONE Stop: 06/04/18 07:34 Promethazine HCl (Phenergan) Confirm Administered Dose 25 mg .ROUTE .STK-MED ONE Stop: 06/04/18 12:36 Promethazine HCl (Phenergan) Confirm Administered Dose 25 mg .ROUTE .STK-MED ONE Stop: 06/04/18 21:28 Last Admin: 06/04/18 21:27 Dose: Not Given Promethazine HCl (Phenergan) Confirm Administered Dose 25 mg .ROUTE .STK-MED ONE Stop: 06/05/18 03:35 Last Admin: 06/05/18 03:41 Dose: 25 mg - Exam General: Alert, Oriented HEENT: Pupils Equal, Pupils Reactive, EOMI, Mucous Membr. Moist/Davy Neck: Supple Lungs: Normal Respiratory Effort, Wheezing Cardiovascular: Regular Rate, Regular Rhythm GI/Abdominal Exam: Normal Bowel Sounds, Soft, Non-Tender, No Organomegaly ( fundus above umbilicus; nontender. ), No Distention, No Mass Back Exam: Normal Inspection, Full Range of Motion. No: CVA Tenderness (L), CVA Tenderness (R) Extremities: Normal Inspection, Normal Range of Motion, Non-Tender, Normal Capillary Refill. No: No Pedal Edema (1+ edema bilaterally.) Skin: Warm, Dry, Intact Neurological: No New Focal Deficit Psy/Mental Status: Alert, Normal Affect, Normal Mood - Problem List & Annotations (1) Nausea and vomiting during SNOMED Code(s): 26997685, 691120221 Code(s): O21.9 - VOMITING OF , UNSPECIFIED Status: Acute Current Visit: Yes - Problem List Review Problem List Initiated/Reviewed/Updated: Yes - My Orders Last 24 Hours: My Active Orders 06/04/18 10:15 Cyclobenzaprine [Flexeril] 10 mg PO TID PRN 06/04/18 10:28 Scopolamine [Transderm-Scop] 1.5 mg TRDERM Q72H PRN 06/04/18 10:48 Acetaminophen [Ofirmev] 1,000 mg Premix Bag 1 bag IV Q6H 06/05/18 08:20 BPP wo NST [US] Routine - Assessment Assessment:: 34 weeks, history of hyperemesis with large weight loss in the first trimester, new, sudden onset nausea vomiting 4 days ago, clinically improved by nursing staff observation, patient states she is still vomiting. patient believes she has a kidney stone. I explained that there was no sign of kidney stone either on MRI or ultrasound. There is also no sign of kidney infection. Her back pain is most consistent with musculoskeletal pain from nausea and vomiting. - Plan Plan:: Patient agrees that she would be more comfortable at home with medications for nausea, she will need to have short interval follow up with her hydramatic mechanic before the end of the week as she may need to be hydrated again at that time. Due to mild cough, wheezes on exam will get CXR. Also BPP for assessment of well being today, followup BMP and CBC prior to discharge if normal, discharge to home with antiemetics and steroid taper.
[2018-06-05] MEDS ORDERED: Metoclopramide 10 MG/2 ML SDV ONE (08:43)
[2018-06-05] MEDS: Metoclopramide 10 MG/2 ML SDV IVPUSH PRN (08:54)
[2018-06-05] MEDS: Hydrocortisone Sodium Succinate 100 MG/2 ML SDV IVPUSH SCH ×2 (08:56→21:36)
--- NOTE | 2018-06-05 09:12 | CR ---
EXAMINATION: Portable chest radiograph. HISTORY: Hyperemesis gravidarum. FINDINGS: The trachea is midline. The cardiomediastinal silhouette is within normal limits. No pulmonary infiltrates, effusions or pneumothorax. Osseous structures appear unremarkable. IMPRESSION: No acute cardiopulmonary process.
[2018-06-05 09:40] LABS: CHLORIDE,CL 103 mmol/L (98-107); SODIUM,NA 136 mmol/L (136-145)
[2018-06-05] MEDS ORDERED: DEXTROSE IV ONE (10:30)
[2018-06-05] MEDS ORDERED: POTASSIUM CHLORIDE IV ONE (10:30)
[2018-06-05] MEDS ORDERED: NACL IV ONE (10:30)
[2018-06-05] MEDS ORDERED: Ondansetron 4 MG/2 ML SDV ONE (13:00)
[2018-06-05] MEDS: Ondansetron 4 MG/2 ML SDV IVPUSH PRN (13:04)
--- NOTE | 2018-06-05 13:25 | US ---
EXAMINATION: Biophysical profile HISTORY: Hyperemesis COMPARISON: MRI dated 06/03/2018 TECHNIQUE: Grayscale, color Doppler, and spectral Doppler imaging obtained. FINDINGS: Single live intrauterine in a cephalic position. Amniotic fluid index is normal. heart rate is 142 bpm. Positive breathing, movement. 0/2 for tone. IMPRESSION: Biophysical profile 07/13.
[2018-06-05 16:56] VITALS: BP 133/81
[2018-06-05 18:19] LABS: CHLORIDE,CL 106 mmol/L (98-107); SODIUM,NA 141 mmol/L (136-145)
[2018-06-05] MEDS ORDERED: Potassium Chloride Riders 20 MEQ in Premix Bag 1 BAG IV ONE (19:58)
--- NOTE | 2018-06-07 08:35 | DISCH ---
DATE OF DISCHARGE: 06/05/2018 PRIMARY CARE PHYSICIAN: Unknown PCP ADMITTING DIAGNOSIS: Gastroenteritis with dehydration. CHIEF COMPLAINT: Nausea, vomiting, abdominal pain. BRIEF HISTORY: This is a 27-year-old female, G5, P2-0-2-2, presents at 34 weeks gestation, care with [facility] in [place]. She has suffered earlier in this with severe hyperemesis, has lost over 50 pounds. This has been associated with diarrhea and abdominal pain. She has a working diagnosis of Crohn's disease; however, this has not been verified during the . In recent weeks, she has actually been doing fairly well until 5:00 p.m. on 06/01/2018 when she developed abdominal cramps, nausea, and vomiting. This was consistent with other episodes of viral gastroenteritis that we had seen in the community. She came to the Labor and Delivery but declined any care at that time. On the day of admission, she presented again to Labor and Delivery with abdominal cramping, nausea, vomiting, and diarrhea. She had no contractions. status was reassuring. The cervix was 1 cm and thick. She had no vaginal discharge, bleeding, or loss of fluid. She reported some movement. She has a history of hypokalemia during the with dehydration due to hyperemesis. She presents for evaluation and management of nausea, vomiting, and abdominal cramping. PHYSICAL EXAMINATION: Admission findings: VITAL SIGNS: Temperature was 98.9, blood pressure 125/66, pulse of 78, heart tones 125 with moderate variability. At times, she would have episodes of marked variability but difficulty keeping the baby on heart tone monitor due to emesis. She appears to be cramping curled in the position, but is coherent and provides a good history. NECK: Supple without lymphadenopathy or thyromegaly. Mucous membranes are dry. LUNGS: Clear. CARDIOVASCULAR: Regular rate without murmur. ABDOMEN: Soft, gravid. Fundus is nontender. There is no right upper quadrant tenderness. There is no right lower quadrant tenderness. There is no rebound. No guarding. No CVA tenderness. EXTREMITIES: Trace edema. LABORATORY STUDIES: Include hemoglobin of 11.9, platelet 205,000 white blood cell count 13.9. Sodium 137, potassium 3.7, bilirubin 0.4, AST 13, ALT 17. She was initially observed for hydration and antiemetics. Zofran was not helpful. She declined Phenergan injection initially and received the Phenergan suppository and we proceeded with hydration, expecting her to be discharged to home. However, she continued to have extreme episodes of emesis and some cramping but more issue with back pain. HOSPITAL COURSE: The patient was admitted when it was apparent that the nausea and vomiting were not going to resolve in the short term, and she was seen by Internal Medicine for consultation. He recommended a consultation with General Surgery to rule out obstruction, although her exam did not suggest this. He also noted her alkaline phosphatase was elevated. However, I reassured him that this is completely normal in due to production of alkaline phosphatase by the placenta. Ultrasound of the abdomen was normal. She has had a prior cholecystectomy. There was no renal sinus dilatation. UA did not show any evidence of UTI. She was then seen by General Surgery, who ordered an MRI to obtain the best imaging with her state. There was no sign of bowel obstruction. No sign of renal obstruction. No sign of biliary tree dilatation. He could not definitively see the appendix, but there was no free fluid in the pelvis. There was also no evidence of inflammatory bowel changes. She continued to have episodes of emesis. She did receive a single dose of morphine. With this, her vomiting did improve and she rested. However, she does have a history of substance abuse, and I did not want to continue to give her narcotic medication. Therefore, we utilized scopolamine patch, IV Tylenol and Phenergan injections, and was also started on IV hydrocortisone to assist with hyperemesis. She was continued on IV fluids with D5. By hospital day number 3, she had some episodes without emesis, and plan was to discharge her to home. However, then she began to complain of back pain. She was started on cyclobenzaprine, which did not help. Somehow, the patient had convinced the nurse at night on hospital day number 3 that she had a kidney stone, even though she has been fully evaluated and does not have a kidney stone. Therefore, she received additional morphine, which was ordered by the on-call physician, which again provided her with relief of all of her symptoms. Throughout her admission, her potassium level had actually maintained above 3.3. On the day when I had discussed with her that she may be more comfortable at home with medications for nausea, and she would need a short interval followup with her stitcher standard machine before the end of the week, she had developed a mild cough and wheeze. We got a chest x-ray which was normal. The biophysical profile was 8/10 for the fetus. However, repeat BMP on this day showed the potassium to have dropped precipitously to 2.6, and therefore, we gave her 40 mEq of potassium chloride IV. Following this, her potassium had improved to 2.9, and then finally with another two, it was at 3. At this point, the patient was demanding to be discharged. I did not feel that this required discharge against medical advice, as long as she has short interval followup with laboratory studies with her stitcher standard machine in [place]. We called to get an appointment for her; however, the stitcher standard machine who had originally taken care of her is no longer present. We attempted to get an appointment within the next 2 days; however, the soonest appointment we could get was on June 11. However, the patient agrees to present to [place] if nausea and vomiting are persistent at home, and therefore, she was dismissed to home. FINAL DIAGNOSES: 34 week intrauterine , viral gastroenteritis with exacerbation of hyperemesis gravidarum and hypokalemia. DISCHARGE MEDICATIONS: 1. Acetaminophen 650 mg rectal suppositories every 6 hours as needed, #10. 2. Vistaril 25 mg p.o. q.6 hours p.r.n. insomnia or anxiety. 3. Methylprednisolone 4 mg Medrol dose pack, promethazine, Phenergan suppositories q.6 hours as needed for nausea, and she will follow up regarding her hypokalemia with her stitcher standard machine in [place] as the patient requests to be discharged. HOLLIE RODRIGUEZ /[id number]
== END 2018-06-05 22:40 | disposition home or self-care (01) ==
LOC: MW.OBCHECK 10:10 → MW.OB 10:12 → MW.OBCHECK 06-04 04:28 → MW.OB 06-04 04:30
PROVIDERS: ADMIT Obstetrics & Gynecology; ATTEND Obstetrics & Gynecology
DX: O99.89 Other specified diseases and conditions complicating pregnancy, childbirth and the puerperium (principal); A08.4 Viral intestinal infection, unspecified; O21.1 Hyperemesis gravidarum with metabolic disturbance; Z3A.34 34 weeks gestation of pregnancy; Z90.49 Acquired absence of other specified parts of digestive tract; Z88.1 Allergy status to other antibiotic agents
CPT/HCPCS: 36415; 59025; 71045; 76819; 80048; 80053; 80305; 81003; 82150; 82962; 83036; 83605; 83690; 83735; 84112; 84132; 84443; 85025; 85027; 85610; 85730; 86677; 96361; 96365; 96367; 96372; 96375; 96376; A9270; C9113; G0378; J0131; J1720; J2270; J2405; J2550; J2765; J3480; J7042; J7050; J7120

== ENCOUNTER 2021-12-09 10:50 | Emergency (ER) | payer SELFPAY ==
[2021-12-09] MEDS ORDERED: Sodium Chloride 0.9% 10 ML Syringe FLUSH PRN (11:12)
[2021-12-09] MEDS ORDERED: Ondansetron 4 MG/2 ML SDV IVPUSH ONE ×2 (11:12→11:48)
[2021-12-09] MEDS ORDERED: Sodium Chloride 0.9% 2.5 ML Syringe FLUSH PRN (11:12)
[2021-12-09] MEDS ORDERED: Ketorolac 30 MG/ML SDV IVPUSH ONE (11:12)
[2021-12-09] MEDS ORDERED: Sodium Chloride 0.9% 1,000 ML IV ONE (11:12)
[2021-12-09 11:41] LABS: CARBON DIOXIDE,CO2 18.8 mmol/L (21.0-32.0); POTASSIUM,K 3.5 mmol/L (3.5-5.1)
[2021-12-09] MEDS ORDERED: HYDROmorphone 1 MG/ML Syringe IVPUSH ONE (11:48)
[2021-12-09] MEDS ORDERED: Iopamidol 755 MG/ML 500 ML Multipack Bottle IVPUSH STA (11:52)
[2021-12-09] MEDS ORDERED: Promethazine 25 MG/ML SDV IM ONE (12:48)
[2021-12-09] MEDS ORDERED: Alum Hydro/Mag Hydro/Simeth XS 15 ML, Lidocaine 2% 5 ML PO ONE ×2 (14:07)
[2021-12-09] MEDS ORDERED: diphenhydrAMINE 50 MG/ML SDV IVPUSH ONE (14:32)
[2021-12-09] MEDS ORDERED: Haloperidol Lactate 5 MG/ML SDV IM ONE (14:32)
[2021-12-09 16:38] VITALS: BP 130/70; PULSE 65
== END 2021-12-09 16:38 | disposition home or self-care (01) ==
LOC: MW.ED 10:50
DX: N30.01 Acute cystitis with hematuria (principal); K29.70 Gastritis, unspecified, without bleeding; Z88.1 Allergy status to other antibiotic agents; Z86.16 Personal history of COVID-19
CPT/HCPCS: 36415; 74177; 80053; 81001; 81025; 83690; 85025; 96361; 96372; 96374; 96375; 96376; 99284; A9270; J1170; J1200; J1630; J1885; J2405; J2550; J3490; J7030; Q9967

== ENCOUNTER 2021-12-11 12:10 | Emergency (ER) | payer SELFPAY ==
[2021-12-11] MEDS ORDERED: Sodium Chloride 0.9% 2.5 ML Syringe FLUSH PRN (13:26)
[2021-12-11] MEDS ORDERED: Sodium Chloride 0.9% 10 ML Syringe FLUSH PRN (13:26)
[2021-12-11] MEDS ORDERED: Ondansetron 4 MG/2 ML SDV IVPUSH ONE (13:27)
[2021-12-11] MEDS ORDERED: HYDROmorphone 1 MG/ML Syringe IVPUSH ONE (13:27)
[2021-12-11] MEDS ORDERED: Sodium Chloride 0.9% 1,000 ML IV ONE (13:27)
[2021-12-11] MEDS ORDERED: Haloperidol Lactate 5 MG/ML SDV IM ONE (13:32)
[2021-12-11] MEDS ORDERED: diphenhydrAMINE 50 MG/ML SDV IVPUSH ONE (13:33)
[2021-12-11 14:12] LABS: BLOOD UREA NITROGEN,BUN 10 mg/dL (7.0-18.0); CARBON DIOXIDE,CO2 23.1 mmol/L (21.0-32.0); CHLORIDE,CL 102 mmol/L (98-107); GLUCOSE RANDOM 120 mg/dL (74-106); POTASSIUM,K 3.7 mmol/L (3.5-5.1); SODIUM,NA 140 mmol/L (136-145)
[2021-12-11 14:13] LABS: ESTIMATED GFR 77 mL/min (>60)
[2021-12-11] MEDS ORDERED: Magnesium Sulfate/Water 2 GM in Premix Bag 1 BAG IV ONE (14:23)
[2021-12-11 18:46] VITALS: BP 108/61; PULSE 69
== END 2021-12-11 17:56 | disposition home or self-care (01) ==
LOC: MW.ED 12:10
DX: R11.10 Vomiting, unspecified (principal); R19.7 Diarrhea, unspecified; Z88.1 Allergy status to other antibiotic agents
CPT/HCPCS: 36415; 80053; 83735; 85025; 96361; 96365; 96372; 96375; 99284; J1170; J1200; J1630; J2405; J3475; J3490; J7030

== ENCOUNTER 2024-07-18 17:58 | Emergency (ER) | payer BC ==
[2024-07-18 18:09] VITALS: BP 149/78; PULSE 93
[2024-07-18] MEDS: Penicillin V Potassium 500 MG Tab PO ONE (18:27)
[2024-07-18] MEDS: Acetaminophen/HYDROcodone 325-5 MG Tab PO ONE (18:27)
[2024-07-18] MEDS: Ketorolac 60 MG/2 ML SDV IM ONE (18:30)
[2024-07-18] MEDS: predniSONE 20 MG Tab PO ONE (18:30)
== END 2024-07-18 18:35 | disposition home or self-care (01) ==
LOC: MW.ED 17:58
DX: K04.7 Periapical abscess without sinus (principal); K02.9 Dental caries, unspecified; Z86.16 Personal history of COVID-19; Z90.49 Acquired absence of other specified parts of digestive tract; Z88.1 Allergy status to other antibiotic agents
CPT/HCPCS: 96372; 99282; A9270; J1885

== ENCOUNTER 2024-07-19 04:41 | Emergency (ER) | payer BC ==
[2024-07-19] MEDS ORDERED: Sodium Chloride 0.9% 2.5 ML Syringe FLUSH PRN (04:49)
[2024-07-19] MEDS ORDERED: Sodium Chloride 0.9% 10 ML Syringe FLUSH PRN (04:49)
[2024-07-19 04:52] VITALS: PULSE 103
[2024-07-19] MEDS: droPERidol 2.5 MG/ML SDV IVPUSH ONE ×2 (04:54→05:00)
[2024-07-19] MEDS: Sodium Chloride 0.9% 1,000 ML IV SCH (04:54)
[2024-07-19 05:07] LABS: BASOPHILS ABSOLUTE AUTO 0.05 K/uL (0.00-0.20); BASOPHILS PERCENT AUTO 0.5 % (0.0-1.0); EOSINOPHILS ABSOLUTE AUTO 0.27 K/uL (0.00-0.45); EOSINOPHILS PERCENT AUTO 2.7 % (0.0-6.0); HEMATOCRIT 44.8 % (37.0-47.0); HEMOGLOBIN 14.8 g/dL (12.0-16.0); IMMATURE GRAN ABSOLUTE AUTO 0.03 K/uL (0.00-0.05); IMMATURE GRAN PERCENT AUTO 0.3 % (0.0-0.4); LYMPHOCYTES ABSOLUTE AUTO 2.45 K/uL (1.00-4.80); LYMPHOCYTES PERCENT AUTO 24.3 % (24.0-44.0); MEAN CORPUSCULAR HEMOGLOBIN 29.1 pg (28.0-32.0); MEAN PLATELET VOLUME 10.7 fL (9.4-12.3); MONOCYTES ABSOLUTE AUTO 0.42 K/uL (0.00-0.80); MONOCYTES PERCENT AUTO 4.2 % (0.0-8.0); NEUTROPHILS ABSOLUTE AUTO 6.88 K/uL (1.80-7.70); PLATELET COUNT,PLT 324 K/uL (150-400); RED BLOOD CELL COUNT 5.09 M/uL (4.10-5.30)
[2024-07-19] MEDS ORDERED: LORazepam 2 MG/ML SDV IVPUSH ONE (05:10)
[2024-07-19] MEDS ORDERED: droPERidol 2.5 MG/ML SDV IVPUSH ONE (05:10)
[2024-07-19 05:22] LABS: A/G RATIO 1.3 (0.9-1.6); ALBUMIN 4.3 g/dL (3.4-5.0); BILIRUBIN TOTAL 0.8 mg/dL (0.2-1.0); CALCIUM 9.6 mg/dL (8.5-10.1); CARBON DIOXIDE,CO2 24.1 mmol/L (21.0-32.0); CREATININE 1.1 mg/dL (0.6-1.0); EST CRCL DRUG DOSING (CG) 69.42 mL/min; POTASSIUM,K 3.2 mmol/L (3.5-5.1); PROTEIN TOTAL,TP 7.6 g/dL (6.4-8.2)
== END 2024-07-19 05:47 | disposition left against medical advice (07) ==
LOC: MW.ED 04:41
DX: R10.31 Right lower quadrant pain (principal); R11.10 Vomiting, unspecified; F17.210 Nicotine dependence, cigarettes, uncomplicated; Z88.1 Allergy status to other antibiotic agents; Z79.899 Other long term (current) drug therapy; Z53.29 Procedure and treatment not carried out because of patient's decision for other reasons
CPT/HCPCS: 36415; 80053; 83690; 85025; 96361; 96374; 99284; J1790; J7030; 99285

== ENCOUNTER 2024-08-06 21:21 | Emergency (ER) | payer BC ==
[2024-08-06 21:36] VITALS: BP 157/79; PULSE 81
== END 2024-08-06 22:02 | disposition left against medical advice (07) ==
LOC: MW.ED 21:21
DX: Z53.21 Procedure and treatment not carried out due to patient leaving prior to being seen by health care provider (principal)

== ENCOUNTER 2024-11-20 12:41 | Emergency (ER) | payer BC ==
[2024-11-20] MEDS ORDERED: Sodium Chloride 0.9% 2.5 ML Syringe FLUSH PRN (13:14)
[2024-11-20] MEDS ORDERED: Sodium Chloride 0.9% 10 ML Syringe FLUSH PRN (13:14)
[2024-11-20] MEDS: Ondansetron 4 MG/2 ML SDV IVPUSH ONE (13:24)
[2024-11-20] MEDS: Ketorolac 30 MG/ML SDV IVPUSH ONE (13:25)
[2024-11-20 13:30] LABS: BASOPHILS ABSOLUTE AUTO 0.05 K/uL (0.00-0.20); BASOPHILS PERCENT AUTO 0.5 % (0.0-1.0); EOSINOPHILS ABSOLUTE AUTO 0.01 K/uL (0.00-0.45); EOSINOPHILS PERCENT AUTO 0.1 % (0.0-6.0); IMMATURE GRAN ABSOLUTE AUTO 0.06 K/uL (0.00-0.05); IMMATURE GRAN PERCENT AUTO 0.6 % (0.0-0.4); LYMPHOCYTES ABSOLUTE AUTO 1.67 K/uL (1.00-4.80); LYMPHOCYTES PERCENT AUTO 16.1 % (24.0-44.0); MEAN PLATELET VOLUME 10.3 fL (9.4-12.3); MONOCYTES ABSOLUTE AUTO 0.66 K/uL (0.00-0.80); MONOCYTES PERCENT AUTO 6.4 % (0.0-8.0); NEUTROPHILS ABSOLUTE AUTO 7.92 K/uL (1.80-7.70); NEUTROPHILS PERCENT AUTO 76.3 % (41.0-71.0); NRBC ABSOLUTE 0.00 K/uL (0.00-0.02); NRBC PERCENT 0.0 /100WBC (0.0-0.2); PLATELET COUNT,PLT 259 K/uL (150-400); RED BLOOD CELL COUNT 5.15 M/uL (4.10-5.30); WHITE BLOOD CELL COUNT,WBC 10.37 K/uL (3.9-11.3)
[2024-11-20 14:01] LABS: A/G RATIO 1.3 (0.9-1.6); ALANINE AMINOTRANSFERASE,ALT 36.0 IU/L (14-63); ASPARTATE AMNIOTRANSFERASE,AST 30.0 IU/L (15-37); BILIRUBIN TOTAL 0.7 mg/dL (0.2-1.0); BLOOD UREA NITROGEN,BUN 13.0 mg/dL (7.0-18.0); CARBON DIOXIDE,CO2 22.4 mmol/L (21.0-32.0); CHLORIDE,CL 103.0 mmol/L (98-107); CREATININE 0.7 mg/dL (0.6-1.0); EST CRCL DRUG DOSING (CG) 92.79 mL/min; GLUCOSE RANDOM 118.0 mg/dL (74-106); POTASSIUM,K 3.4 mmol/L (3.5-5.1); PROTEIN TOTAL,TP 7.2 g/dL (6.4-8.2); SODIUM,NA 141.0 mmol/L (136-145)
[2024-11-20 14:02] LABS: ESTIMATED GFR 116.0 mL/min (>60)
[2024-11-20] MEDS: droPERidol 2.5 MG/ML SDV IVPUSH ONE (14:15)
[2024-11-20 14:27] LABS: APPEARANCE,URINE CLEAR; GLUCOSE,URINE NEGATIVE (NEGATIVE); OCCULT BLOOD,URINE NEGATIVE (NEGATIVE)
[2024-11-20 15:55] VITALS: BP 139/69; PULSE 90
== END 2024-11-20 15:56 | disposition home or self-care (01) ==
LOC: MW.ED 12:41
DX: R11.2 Nausea with vomiting, unspecified (principal); E86.0 Dehydration; Z88.1 Allergy status to other antibiotic agents; Z75.3 Unavailability and inaccessibility of health-care facilities; Z90.49 Acquired absence of other specified parts of digestive tract
CPT/HCPCS: 36415; 80053; 81003; 83690; 83735; 85025; 96361; 96374; 96375; 99284; J1790; J1885; J2405; J7030